=== PATIENT | male | born 1980 | race Caucasian/White ===

== ENCOUNTER → 2020-06-12 | Outpatient (CLI) | payer BC, SELFPAY | END | disposition home or self-care (01) | LOC: LABSPEC 15:39 | PROVIDERS: PCP Family Medicine; Referring Provider Physician Assistant; Visit Provider Physician Assistant | DX: Z20.828 Contact with and (suspected) exposure to other viral communicable diseases (principal) | CPT/HCPCS: 87635; U0003 ==

== ENCOUNTER → 2021-03-15 | Outpatient (CLI) | payer BC, SELFPAY | END | disposition home or self-care (01) | PROVIDERS: PCP Family Medicine; Referring Provider Physician Assistant Surgical; Visit Provider Physician Assistant Surgical | DX: Z20.822 Contact with and (suspected) exposure to COVID-19 (principal) | CPT/HCPCS: 87635; U0005; U0003 ==

== ENCOUNTER → 2021-06-29 09:16 | Outpatient (CLI) | payer BC, SELFPAY ==
[2021-06-29 12:19] LABS: Absolute Lymphocyte Count 1.36 X10^3/uL (0.83-4.51); Absolute Neutrophil Count 3.3 X10^3/uL (2.0-7.7); Basophil# 0.01 X10^3/uL; Basophil% 0.2 % (0-1); Eosinophil# 0.19 X10^3/uL; Eosinophils% 3.6 % (0-5); Hematocrit 42.1 % (40-54); Hemoglobin 14.5 g/dL (13.0-16.5); Lymphocyte # 1.36 X10^3/ul (0.83-4.51); Lymphocyte % 25.8 % (19-41); Mean Corp Hgb Conc 34.4 g/dL (32-36); Mean Corpuscular Hgb 29.7 pg (27.0-32.0); Mean Corpuscular Volume 86.3 fL (80-94); Mean Platelet Vol. 9.7 fl (6.2-12.0); Monocyte# 0.42 X10^3/uL; NRBC Flagged by Analyzer 0 % (0-5); Neutrophil # 3.29 X10^3/uL (2.7-7.7); Neutrophil % 62.2 % (47-70); Platelet Count 182 K/mm3 (150-450); RBC Distribution Width CV 12.5 % (11.6-14.6); RBC Distribution Width SD 39.4 fl (35.1-43.9); Red Blood Count 4.88 M/mm3 (4.6-6.2); White Blood Count 5.3 K/mm3 (4.4-11.0)
[2021-06-29 12:53] LABS: ALB/GLOB Ratio 1.2 RATIO (0.9-2.4); AST(SGOT) 29 U/L (15-37); Alanine Aminotransfer ALT/SGPT 77 U/L (16-61); Albumin, Serum 4.6 g/dL (3.2-5.0); Alkaline Phosphatase 52 U/L (45-117); Anion Gap 11 (5-15); BUN 13 mg/dL (7-18); BUN/Creat Ratio 17.4 RATIO (10-20); Calcium,Total 9.6 mg/dL (8.5-10.1); Chloride 99 mmol/L (98-107); Cholesterol 159 mg/dL (200); Creatinine, Serum 0.75 mg/dL (0.70-1.30); EST Glomerular Filtration Rate 123 mL/min (>60); Est Glom Filt Rate - Afr Amer 149 mL/min (>60); Globulin 3.8 g/dL (2.2-4.2); Glucose 256 mg/dL (74-106); High Density Lipoprotein 34 mg/dL; Potassium 3.9 mmol/L (3.5-5.1); Protein, Total 8.4 g/dL (6.4-8.2); Sodium Level 138 mmol/L (136-145); Triglycerides 747 mg/dL
[2021-06-29 12:57] LABS: Microalbumin:Creatinine Ratio 12.6 mg/g CRE (<30 mg/g CRE)
== END ==
PROVIDERS: PCP Internal Medicine; Referring Provider Internal Medicine; Visit Provider Internal Medicine
DX: E11.9 Type 2 diabetes mellitus without complications (principal)
CPT/HCPCS: 36415; 80053; 80061; 82043; 82570; 85025

== ENCOUNTER 2021-07-31 12:27 | Outpatient (CLI) | payer BC, SELFPAY ==
[2021-07-31] MEDS: 0.9% Saline Lock 10 ML Syringe IV (12:50)
[2021-07-31 13:05] VITALS: BP 124/84; PULSE 77; RESP 16; TEMP 36.6; O2SAT 98; BMI 35.4
[2021-07-31 13:20] VITALS: BP 116/76; PULSE 96; RESP 16; TEMP 37.1; O2SAT 99
[2021-07-31 14:09] VITALS: BP 123/80; PULSE 91; RESP 16; TEMP 36.9; O2SAT 100
== END 2021-07-31 23:59 | disposition home or self-care (01) ==
LOC: MS3OUT 12:27 → MS3 12:28
PROVIDERS: PCP Internal Medicine; Referring Provider Nurse Practitioner Adult Health; Visit Provider Nurse Practitioner Adult Health
DX: Z23 Encounter for immunization (principal); U07.1 COVID-19
CPT/HCPCS: J7050; M0245; Q0245; A4216

== ENCOUNTER 2021-09-14 16:33 | Outpatient (CLI) | payer BC, SELFPAY ==
--- NOTE | 2021-09-14 | CYST_PTH ---
PATIENT: JEN EATON LOC: [facility] U#:[id number] AGE/SX: 41/M ROOM: RE09/14/[address]: Dr. Derek Ragsdale MD : 1980 BED: DIS: 09/14/2021 SPEC #: [id number] RECD: 09/14/21 16:20 STATUS: ALIVIA BLAIR #: [id number] LULY: 09/14/21 00:[address]: Derek Ragsdale DEPT: SURGICAL PATHOLOGY RECD BY: Ge Lees ENTERED: 09/15/21 10:13 SP TYPE: Cyst OTHR DR: Dr. Kimani Mckeon MD Tissues: CYST Procedures: Surgery Specimen Level III HEADER OPERATION: Excision of back cyst PRE-OP DIAGNOSIS: Sebaceous cyst of back TISSUE SUBMITTED: Back cyst MICROSCOPIC DIAGNOSIS Back cyst, excision: Epidermal inclusion cyst. MARELY:wilmer 09/16/2021 MICROSCOPIC DESCRIPTION Slides are reviewed. GROSS DESCRIPTION Received in fixative is one container labeled with the patient's name and designated back cyst. The specimen consists of a piece of skin with underlying. The underlying tissue measures 3 x 2 x 1 cm and skin piece measures 1.5 x 0.5 cm. The specimen is bisected and reveals a cyst filled with comer-white, cheesy material measuring 1.5 cm in greatest dimension. Forensic Document Examiner sections are submitted in two cassettes. / SJ:rg 09/15/2021 :5 [facility]: [id number]
== END 2021-09-14 23:59 | disposition home or self-care (01) ==
LOC: LABSPEC 16:35
PROVIDERS: PCP Internal Medicine; Referring Provider Surgery; Visit Provider Surgery
DX: L72.0 Epidermal cyst (principal)
CPT/HCPCS: 88304

== ENCOUNTER → 2022-11-11 | Outpatient (CLI) | payer BC, SELFPAY ==
[2022-11-11 17:10] LABS: Absolute Neutrophil Count 4.3 X10^3/uL (2.0-7.7); Basophil# 0.01 X10^3/uL; Basophil% 0.2 % (0-1); Eosinophil# 0.13 X10^3/uL; Hematocrit 44.1 % (40-54); Hemoglobin 14.7 g/dL (13.0-16.5); Lymphocyte % 23.4 % (19-41); Mean Corp Hgb Conc 33.3 g/dL (32-36); Mean Corpuscular Hgb 29.7 pg (27.0-32.0); Mean Corpuscular Volume 89.1 fL (80-94); Mean Platelet Vol. 9.3 fl (6.2-12.0); Monocyte# 0.46 X10^3/uL; Monocyte% 7.2 % (0-10); NRBC Flagged by Analyzer 0 % (0-5); Neutrophil # 4.28 X10^3/uL (2.7-7.7); Neutrophil % 66.7 % (47-70); Platelet Count 228 K/mm3 (150-450); RBC Distribution Width CV 13.1 % (11.6-14.6); RBC Distribution Width SD 42.6 fl (35.1-43.9); Red Blood Count 4.95 M/mm3 (4.6-6.2); White Blood Count 6.4 K/mm3 (4.4-11.0)
[2022-11-11 17:33] LABS: Hemoglobin A1c 7.9 % (3.8-5.6)
[2022-11-11 17:35] LABS: Microalbumin,Random Urine 5.4 mg/L (NO RANGE EST.); Microalbumin:Creatinine Ratio 10.6 mg/g CRE (<30 mg/g CRE)
[2022-11-11 17:36] LABS: ALB/GLOB Ratio 1.6 RATIO (0.9-2.4); AST(SGOT) 35 U/L (15-37); Alanine Aminotransfer ALT/SGPT 74 U/L (16-61); Albumin, Serum 4.8 g/dL (3.2-5.0); Alkaline Phosphatase 41 U/L (45-117); Anion Gap 11 (5-15); BUN 17 mg/dL (7-18); BUN/Creat Ratio 17.1 RATIO (10-20); Calcium,Total 9.9 mg/dL (8.5-10.1); Chloride 103 mmol/L (98-107); Cholesterol 125 mg/dL (200); Creatinine, Serum 0.99 mg/dL (0.70-1.30); EST Glomerular Filtration Rate 88 mL/min (>60); Est Glom Filt Rate - Afr Amer 107 mL/min (>60); Glucose 171 mg/dL (74-106); High Density Lipoprotein 35 mg/dL; Potassium 3.6 mmol/L (3.5-5.1); Protein, Total 7.8 g/dL (6.4-8.2); Sodium Level 142 mmol/L (136-145); Triglycerides 378 mg/dL; Very Low Density Lipoprotein 76 mg/dL (5-40)
== END | disposition home or self-care (01) ==
LOC: BIMLAB 15:47
PROVIDERS: PCP Internal Medicine; Referring Provider Internal Medicine; Visit Provider Internal Medicine
DX: E11.9 Type 2 diabetes mellitus without complications (principal); E78.2 Mixed hyperlipidemia
CPT/HCPCS: 36415; 80053; 80061; 82043; 82570; 83036; 85025

== ENCOUNTER → 2024-08-02 | Outpatient (CLI) | payer BC, SELFPAY ==
[2024-08-02 12:05] LABS: Absolute Lymphocyte Count 1.44 X10^3/uL (0.83-4.51); Absolute Neutrophil Count 2.9 X10^3/uL (2.0-7.7); Basophil# 0.02 X10^3/uL; Basophil% 0.4 % (0-1); Eosinophil# 0.13 X10^3/uL; Eosinophils% 2.6 % (0-5); Hematocrit 44.8 % (40-54); Hemoglobin 15.2 g/dL (13.0-16.5); Lymphocyte # 1.44 X10^3/ul (0.83-4.51); Lymphocyte % 29.3 % (19-41); Mean Corp Hgb Conc 33.9 g/dL (32-36); Mean Corpuscular Hgb 30.1 pg (27.0-32.0); Mean Corpuscular Volume 88.7 fL (80-94); Mean Platelet Vol. 9.6 fl (6.2-12.0); Monocyte% 8.1 % (0-10); NRBC Flagged by Analyzer 0 % (0-5); Neutrophil # 2.92 X10^3/uL (2.7-7.7); Neutrophil % 59.4 % (47-70); Platelet Count 222 K/mm3 (150-450); RBC Distribution Width CV 13.2 % (11.6-14.6); RBC Distribution Width SD 42.8 fl (35.1-43.9); Red Blood Count 5.05 M/mm3 (4.6-6.2); White Blood Count 4.9 K/mm3 (4.4-11.0)
[2024-08-02 12:20] LABS: ALB/GLOB Ratio 1.4 RATIO (0.9-2.4); AST(SGOT) 46 U/L (15-37); Alanine Aminotransfer ALT/SGPT 101 U/L (16-61); Albumin, Serum 4.9 g/dL (3.2-5.0); Alkaline Phosphatase 43 U/L (45-117); Anion Gap 7 (5-15); BUN 17 mg/dL (7-18); BUN/Creat Ratio 17.1 RATIO (10-20); Calcium,Total 9.5 mg/dL (8.5-10.1); Chloride 103 mmol/L (98-107); Cholesterol 214 mg/dL (200); EST Glomerular Filtration Rate 88 mL/min (>60); Est Glom Filt Rate - Afr Amer 106 mL/min (>60); Globulin 3.4 g/dL (2.2-4.2); Glucose 161 mg/dL (74-106); High Density Lipoprotein 38 mg/dL; Potassium 3.8 mmol/L (3.5-5.1); Protein, Total 8.3 g/dL (6.4-8.2); Sodium Level 138 mmol/L (136-145); Triglycerides 222 mg/dL; Very Low Density Lipoprotein 44 mg/dL (5-40)
[2024-08-02 12:29] LABS: Vitamin B12 450 pg/mL (211-911)
[2024-08-02 12:36] LABS: Microalbumin,Random Urine 11.3 mg/L (NO RANGE EST.); Microalbumin:Creatinine Ratio 10.3 mg/g CRE (<30 mg/g CRE)
== END | disposition home or self-care (01) ==
LOC: BIMLAB 09:57
PROVIDERS: PCP Internal Medicine; Referring Provider Internal Medicine; Visit Provider Internal Medicine
DX: E11.9 Type 2 diabetes mellitus without complications (principal); I10 Essential (primary) hypertension; E78.2 Mixed hyperlipidemia
CPT/HCPCS: 36415; 80053; 80061; 82043; 82570; 82607; 85025

== ENCOUNTER → 2024-08-06 | Outpatient (CLI) | payer BC, SELFPAY ==
--- NOTE | 2024-08-06 07:12 | US_ITS ---
PROCEDURE: Limited abdominal ultrasound. REASON FOR EXAM: Elevated liver enzymes. PROCEDURE: The liver measures 20.1 cm with increased echogenicity. There is a paddle pedal flow. The gallbladder measures 9 cm in length. Negative sonographic Saucedo sign. No stones or sludge. Th e common bile duct measures 4 mm. The visualized pancreas is within normal limits. The right kidney measures 14.1 cm in length. Normal echogenicity. No hydronephrosis or visualized c alculi. US/Liver IMPRESSION: Hepatomegaly and hepatic steatosis. Reading Location: [id number]
== END | disposition home or self-care (01) ==
LOC: US 07:12
PROVIDERS: PCP Internal Medicine; Referring Provider Internal Medicine; Visit Provider Internal Medicine
DX: R74.8 Abnormal levels of other serum enzymes (principal)
CPT/HCPCS: 76705

== ENCOUNTER → 2025-04-11 | Outpatient (CLI) | payer BC, SELFPAY ==
--- NOTE | 2025-04-11 08:06 | EKG12_ITS ---
Test Reason : ROUTINE Blood Pressure : */* mmHG Vent. Rate : 96 BPM Atrial Rate : 96 BPM P-R Int : 154 ms QRS Dur : 80 ms QT Int : 326 ms P-R-T Axes : 59 32 30 degrees QTcB Int : 411 ms Normal sinus rhythm Normal ECG Confirmed by CAROLYN GRAY, JESUS MANUEL ([id number]), supervising editor trailer DELON IBARRA ([id number]) on 04/14/2025 6:19:50 AM Referred By: Kimani Mckeon Confirmed By: JESUS MANUEL LEON MD
== END | disposition home or self-care (01) ==
PROVIDERS: PCP Internal Medicine; Referring Provider Internal Medicine; Visit Provider Internal Medicine
DX: E78.2 Mixed hyperlipidemia (principal); E11.69 Type 2 diabetes mellitus with other specified complication; Z82.49 Family history of ischemic heart disease and other diseases of the circulatory system
CPT/HCPCS: 93005

== ENCOUNTER → 2025-04-25 | Outpatient (CLI) | payer BC, SELFPAY ==
--- OUTSIDE RECORDS SUMMARY | 2025-04-25 07:44 | XMS RPT_ITS | CCD ---
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 Kimani Mckeon Primary Care Provider 1([phone]) Dr. Kimani Mckeon Referring Provider [phone] RADHA Sparrow Attending Provider Dr. Kimani Mckeon Attending Provider [phone] Kimani Mckeon MD Primary Care Provider 1( 30) MARYANA HERNANDEZANN Yesenia Referring Unavailable OLEGHE, EFEWONGBE B Primary Care Unavailable KARRI HERNANDEZ Referring Unavailable OLEGHE, EFEWONGBE B Primary Care Unavailable HRKARRI KIDD Attending Unavailable OLEGHE, EFEWONGBE B Primary Care Unavailable HRMARYANA KIDDANN E Referring Unavailable OLEGHE, EFEWONGBE B Primary Care Unavailable JARRED GIRALDO Attending Unavailable Dr. Kimani Mckeon MD Primary Care Provider Dr. Kimani Mckeon MD Attending Provider 1(33 0) Dr. Kimani Mckeon MD Referring Provider 1(33 0) Kimani Mckeon Attending Unavailable Oleghe, Efewongbe Referring Unavailable Oleghe, Efewongbe Primary Care Unavailable Marvghe, Efewongbe Attending Unavailable Marvghe, Efewongbe Referring Unavailable Oleghe, Efewongbe Primary Care Unavailable Oleghe, Efewongbe Attending Unavailable Oleghe, Efewongbe Referring Unavailable Oleghe, Efewongbe Primary Care Unavailable Oleghe, Efewongbe Primary Care Unavailable Oleghe, Efewongbe Attending Unavailable Oleghe, Efewongbe Referring Unavailable Oleghe, Efewongbe Primary Care Unavailable Oleghe, Efewongbe Attending Unavailable Oleghe, Efewongbe Referring Unavailable Oleghe, Efewongbe Primary Care Unavailable Oleghe, Efewongbe Attending Unavailable Oleghe, Efewongbe Referring Unavailable Medications Current Medications Medication Drug Class(es) Dates Sig (Normalized) Sig (Original) Blood-Glucose Meter (FREESTYLE LITE METER) monitoring kit (8 sources) Start: 09-17-2012 Blood-Glucose Meter (FREESTYLE LITE METER) monitoring kit DX: 250.00 1 Each 0 09/17/2012 Active Comment on above: DX: 250.00 dulaglutide (TRULICITY) 3 mg/0.5 mL pen injector (8 sources) Start: 05-14-2021 inject 3 mg by subcutaneous injection every week dulaglutide (TRULICITY) 3 mg/0.5 mL pen injector Inject 3 mg subcutaneously one time a week. 12 Each 3 05/14/2021 Active Comment on above: Inject 3 mg subcutan eously one time a week. glimepiride 4 mg oral tablet (18 sources) Sulfonylurea Start: 06-29-2021 End: 01-13-2025 take 1 tablet by mouth twice daily Glimepiride 4 mg tablet Active 4 mg PO TWICE A DAY 180 3 January 13, 2025 11:38am Start: 05-14-2021 take 2 tablets by mo uth once daily at breakfast glimepiride (AMARYL) 4 mg tablet Take 2 tablets by mouth daily with breakfast. 180 tablet 1 05/14/2021 Active Start: 07-19-2019 End: 06-29-2021 take 1 tablet by mouth once daily Glimepiride (Amaryl) 1 mg tablet Discontinued 1 mg PO DAILY July 19, 2019 1:00am June 29, 2021 9:29am Comment on above: Take 2 tablets by mo uth daily with breakfast. 24 hr metFORMIN hydrochloride 500 mg extended release oral tablet (20 sources) Biguanide Start: take 2 tablets by mouth every twelve hours metFORMIN ER (GLUCOPHAGE XR) 500 mg 24 hr tablet Take 2 tablets by mouth every 12 hours. 08/10/2024 Active Start: 08-02-2024 End: 01-02-2025 Metformin 500 mg tablet exte nded release 24 hr Active 1000 mg PO TWICE A DAY 180 1 January 02, 2025 8:30am Start: 06-04-2024 End: 07-04-2024 Metformin 500 mg tablet exte nded release 24 hr Discontinued 1000 mg PO TWICE A DAY 120 30 0 June 04, 2024 1:27pm July 03, 2024 1:00am July 04, 2024 1:08am Start: 08-25-2023 End: 05-12-2024 Metformin 500 mg tablet exte nded release 24 hr Discontinued 1000 mg PO TWICE A DAY 360 90 0 February 12, 2024 1:13pm May 11, 2024 12:00am May 12, 2024 12:08am Start: 06-29-2021 End: 08-25-2023 take 1 tablet by mouth twice daily Metformin 1,000 mg tablet extended release 24 hr Discontinued 0 .ROUTE .COMPLEX 90 0 August 24, 2023 11:36am August 25, 2023 2:46pm TAKE 1 TABLET BY MOUTH TWICE A DAY Start: 05-14-2021 End: 06-29-2021 take 1 tablet by mouth twice daily Metformin 1,000 mg tablet Discontinued 1000 mg PO TWICE A DAY June 29, 2021 1:00am June 29, 2021 9:43am Start: 07-19-2019 End: 06-29-2021 take 500 mg by mouth once daily Metformin 500 mg/5 mL solution Discontinued 500 mg PO DAILY July 19, 2019 1:00am June 29, 2021 9:29am Comment on above: Take 1 tablet by yasmany th twice daily with meals. milk thistle extract 150 mg oral capsule (1 source) Start: 5 take 1 capsule by mouth once daily Milk Thistle 150 mg cap Take 1 capsule by mouth once daily. 90 capsule 3 02/27/2025 Active Multivitamin preparation (1 source) Start: 1 take 1 tablet by mouth once daily Multivitamin Active 1 TABLET PO DAILY June 29, 2021 1:00am Multivitamin tablet (1 source) Start: 1 Multivitamin tablet Active 1 {tbl} PO DAILY June 29, 2021 1:00am omega-3 acid ethyl esters (mcc) 1000 mg oral capsule (10 sources) Start: omega-3 acid ethyl esters (LOVAZA) 1 gram capsule Indications: Hyperlipidemia with target LDL less than 100 Take 2 capsules by mouth twice daily. 360 capsule 3 05/14/2021 Active Start: 07-19-2019 End: 06-29-2021 take 1 capsule by mouth once daily [place]-3 Acid Ethyl Esters (Lovaza) 1 gram capsule Discontinued 1 NMA PO DAILY July 19, 2019 1:00am June 29, 2021 9:31am Comment on above: Take 2 capsules by m out twice daily. [place]-3 Fatty Acids (3 sources) Start: 11-11-2022 take 1000 mg by mouth twice daily [place]-3 Fatty Acids Active 1000 MG PO TWICE A DAY 180 November 11, 2022 3:37pm Start: 09-15-2022 End: 11-11-2022 take 1000 mg by mouth twice daily [place]-3 Fatty Acids Discontinued 1000 MG PO TWICE A DAY 180 September 15, 2022 3:55pm November 11, 2022 3:37pm Start: 06-29-2021 End: 09-15-2022 take 1000 mg by mouth twice daily [place]-3 Fatty Acids Discontinued 1000 MG PO TWICE A DAY June 29, 2021 1:00am September 15, 2022 3:55pm [place]-3 Fatty Acids 1,000 mg capsule (6 sources) Start: 10-28-2024 take 1 capsule by mouth twice daily [place]-3 Fatty Acids 1,000 mg capsule Active 1000 mg PO TWICE A DAY 180 October 28, 2024 9:26am Start: 02-27-2024 End: 10-28-2024 take 1 capsule by mouth twice daily [place]-3 Fatty Acids 1,000 mg capsule Discontinued 1000 mg PO TWICE A DAY 180 February 27, 2024 11:47am October 28, 2024 9:26am Start: 08-28-2023 End: 02-27-2024 take 1 capsule by mouth twice daily [place]-3 Fatty Acids 1,000 mg capsule Discontinued 1000 mg PO TWICE A DAY 180 August 28, 2023 6:31pm February 27, 2024 11:47am Start: 11-11-2022 End: 08-28-2023 take 1 capsule by mouth twice daily [place]-3 Fatty Acids 1,000 mg capsule Discontinued 1000 mg PO TWICE A DAY 180 November 11, 2022 3:37pm August 28, 2023 6:31pm Start: 09-15-2022 End: 11-11-2022 take 1 capsule by mouth twice daily [place]-3 Fatty Acids 1,000 mg capsule Discontinued 1000 mg PO TWICE A DAY 180 September 15, 2022 3:55pm November 11, 2022 3:37pm Start: 06-29-2021 End: 09-15-2022 take 1 capsule by mouth twice daily [place]-3 Fatty Acids 1,000 mg capsule Discontinued 1000 mg PO TWICE A DAY June 29, 2021 1:00am September 15, 2022 3:55pm pravastatin sodium 10 mg oral tablet (1 source) HMG-CoA Reductase Inhibitor Start: 02-26-2025 take 1 tablet by mouth once daily pravastatin (PRAVACHOL) 10 mg tablet Take 1 tablet by mouth once daily. 90 tablet 3 02/26/2025 Active ramipril 5 mg oral capsule (19 sources) Angiotensin Converting Enzyme Inhibitor Start: 06-29-2021 End: 09-23-2022 take 1 tablet by mouth once daily Ramipril 5 mg tablet Discontinued 5 mg PO DAILY June 29, 2021 1:00am September 23, 2022 4:53pm Start: 05-14-2021 End: 01-02-2025 take 1 capsule by mouth once daily Ramipril 5 mg capsule Active 5 mg PO DAILY 60 0 January 02, 2025 8:31am Start: 07-19-2019 End: 06-29-2021 take 1 capsule by mouth once daily Ramipril 1.25 mg capsule Discontinued 1.25 mg PO DAILY July 19, 2019 1:00am June 29, 2021 9:30am Comment on above: Take 1 capsule by [facility] daily. rosuvastatin calcium 20 mg oral tablet (1 source) HMG-CoA Reductase Inhibitor Start: take 1 tablet by mouth once daily Rosuvastatin 20 mg tablet Active 20 mg PO daily 30 3 March 07, 2025 12:00am Tirzepatide 10 mg/0.5 mL pen injector (1 source) Start: 5 Tirzepatide 10 mg/0.5 mL pen injector Active 10 mg SC EVERY WEEK 2 March 07, 2025 11:14am Completed/Discontinued Medications Medication Drug Class(es) Dates Sig (Normalized) Sig (Original) amoxicillin 500 mg oral tablet (2 sources) Penicillin-class Antibacterial Start: 10-24-2021 End: 11-26-2021 take 1 tablet by mouth twice daily Amoxicillin 500 mg tablet Discontinued 500 mg PO TWICE A DAY October 24, 2021 12:00am November 26, 2021 10:26am Pharyngitis due to Streptococcus species Streptococcal pharyngitis amoxicillin 875 mg / clavulanate 125 mg oral tablet (2 sources) Penicillin-class Antibacterial Start: 04-15-2022 End: 04-25-2022 Amoxicillin-Pot Clavulanate 875-125 mg tablet Discontinued 1 {tbl} PO Q12H 20 April 15, 2022 12:00am April 24, 2022 12:00am April 25, 2022 12:03am Acute sinusitis, unspecified Start: 04-15-2022 End: 04-25-2022 take 1 tablet by mouth every twelve hours Amoxicillin-Pot Clavulanate Discontinued 1 TABLET PO Q12H 20 April 15, 2022 12:00am April 25, 2022 12:03am atorvastatin 20 mg oral tablet (14 sources) HMG-CoA Reductase Inhibitor Start: 11-14-2022 End: 08-16-2023 take 1 tablet by mouth at bedtime Atorvastatin 20 mg tablet Discontinued 20 mg PO AT BEDTIME 90 November 14, 2022 3:08pm August 16, 2023 3:44pm Start: 05-14-2021 End: 11-14-2022 take 1 tablet by mouth at bedtime Atorvastatin 40 mg tablet Discontinued 40 mg PO AT BEDTIME 90 December 03, 2021 8:16am November 11, 2022 3:37pm Start: 07-19-2019 End: 06-29-2021 take 1 tablet by mouth once daily Atorvastatin (Lipitor) 10 mg tablet Discontinued 10 mg PO DAILY July 19, 2019 1:00am June 29, 2021 9:30am Comment on above: Take 1 tablet by yasmany once daily. dapagliflozin 10 mg oral tablet (20 sources) Sodium-Glucose Cotransporter 2 Inhibitor Start: 06-29-20 End: 08-02-19 take 1 tablet by mouth once daily in the morning Dapagliflozin Propanediol (Farxiga) 10 mg tablet Discontinued 10 mg PO EVERY MORNING 90 August 02, 2024 10:38am August 02, 2024 10:44am Dulaglutide (13 sources) GLP-1 Receptor Agonist Start: 02-07-20 End: 08-02-19 Dulaglutide 4.5 mg/0.5 mL pen injector Discontinued 4.5 mg SC EVERY WEEK 6.5 90 February 07, 2024 5:58pm August 02, 2024 10:41am Start: 11-11-2022 End: 02-07-2024 Dulaglutide 4.5 mg/0.5 mL pe n injector Discontinued 4.5 mg SC EVERY WEEK 6.5 90 November 11, 2022 3:37pm February 07, 2024 6:09pm Start: 11-11-2022 Dulaglutide Ac tive 4.5 MG SC EVERY WEEK 6.5 November 11, 2022 3:37pm Start: 09-13-2022 End: 11-11-2022 Dulaglutide 4.5 mg/0.5 mL pe n injector Discontinued 4.5 mg SC EVERY WEEK 6.5 90 September 13, 2022 9:54am November 11, 2022 3:37pm Start: 09-13-2022 End: 11-11-2022 Dulaglutide Discontinued 4.5 MG SC EVERY WEEK 6.5 90 September 13, 2022 9:54am November 11, 2022 3:37pm Start: 08-06-2021 End: 09-13-2022 Dulaglutide 4.5 mg/0.5 mL pe n injector Discontinued 4.5 mg SC EVERY WEEK 6.5 90 August 06, 2021 10:29am September 13, 2022 9:54am Start: 08-06-2021 End: 09-13-2022 Dulaglutide Discontinued 4.5 MG SC EVERY WEEK 6.5 90 August 06, 2021 10:29am September 13, 2022 9:54am Start: 06-29-2021 End: 08-06-2021 Dulaglutide (Trulicity) 4.5 mg/0.5 mL pen injector Discontinued 4.5 mg SC EVERY WEEK 6.5 90 June 29, 2021 10:05am August 06, 2021 10:32am Start: 06-29-2021 End: 08-06-2021 Dulaglutide (Trulicity) 4.5 mg/0.5 mL pen injector Discontinued 4.5 MG SC EVERY WEEK 6.5 90 June 29, 2021 10:05am August 06, 2021 10:32am Start: 06-29-2021 End: 06-29-2021 Dulaglutide (Trulicity) 3 mg /0.5 mL pen injector Discontinued 3 mg SC EVERY WEEK June 29, 2021 1:00am June 29, 2021 10:07am Start: 06-29-2021 End: 06-29-2021 Dulaglutide (Trulicity) 3 mg /0.5 mL pen injector Discontinued 3 MG SC EVERY WEEK June 29, 2021 1:00am June 29, 2021 10:07am Start: 07-19-2019 End: 06-29-2021 Dulaglutide (Trulicity) 0.75 mg/0.5 mL pen injector Discontinued 0.75 mg SC EVERY WEEK July 19, 2019 1:00am June 29, 2021 9:31am ezetimibe 10 mg oral tablet (6 sources) Dietary Cholesterol Absorption Inhibitor Start: 08-02-2024 End: 03-07-2025 take 1 tablet by mouth once daily Ezetimibe (Zetia) 10 mg tablet Discontinued 10 mg PO daily 90 0 December 16, 2024 8:04am March 07, 2025 11:26am fenofibrate 54 mg oral tablet (13 sources) Peroxisome Proliferator Receptor alpha Agonist Start: 11-14-2022 End: 12-16-2024 take 1 tablet by mouth once daily Fenofibrate 54 mg tablet Discontinued 0 .ROUTE .COMPLEX 90 0 September 09, 2024 2:14pm December 16, 2024 8:05am TAKE 1 TABLET BY MOUTH EVERY DAY oseltamivir 75 mg oral capsule (1 source) Neuraminidase Inhibitor Start: 08-23-2024 End: 03-07-2025 take 1 capsule by mouth once daily Oseltamivir (Tamiflu) 75 mg capsule Discontinued 75 mg PO daily 7 0 August 23, 2024 1:00am March 07, 2025 10:48am Tirzepatide (Mounjaro) 7.5 mg/0.5 mL pen injector (3 sources) Start: 02-10-2025 End: 03-07-2025 Tirzepatide (Mounjaro) 7.5 mg/0.5 mL pen injector Discontinued 7.5 mg SC EVERY WEEK 2 0 February 10, 2025 4:55pm March 07, 2025 11:17am Start: 01-02-2025 End: 02-10-2025 Tirzepatide (Mounjaro) 7.5 m g/0.5 mL pen injector Discontinued 7.5 mg SC EVERY WEEK 2 0 January 02, 2025 8:48am February 10, 2025 4:55pm Start: 08-02-2024 End: 01-02-2025 Tirzepatide (Mounjaro) 7.5 m g/0.5 mL pen injector Discontinued 7.5 mg SC EVERY WEEK 2 0 August 02, 2024 1:00am January 02, 2025 8:48am Problems Active Problems Problem Classification Problem Date Documented Da te Episodic/Chronic Diabetes mellitus with complications (2 sources) Type 2 diabetes mellitus with other specified complication; Translations: [Type 2 diabetes mellitus with other specified complication] Onset: 03-07-2025 Chronic Diabetes mellitus without complication (9 sources) Type 2 diabetes mellitus; Translations: [Type 2 diabetes mellitus without complications] Onset: 07-06-2011 Resolved: 12-05-2014 08-06-2021 Chronic Disorders of lipid metabolism (20 sources) Hyperlipidemia; Translations: [Hyperlipidemia, unspecified] Onset: 07-06-2011 05-06-2015 Chronic Essential hypertension (5 sources) Hypertensive disorder; Translations: [Essential (primary) hypertension] Onset: 03-07-2025 08-06-2021 Chronic Mycoses (1 source) Dermal mycosis; Translations: [Superficial mycosis, unspecified] 02-07-2024 Episodic Other liver diseases (4 sources) Non-alcoholic fatty liver; Translations: [Fatty (change of) liver, not elsewhere classified] Onset: 05-18-2020 Chronic Other liver diseases (6 sources) Fatty (change of) liver, not elsewhere classified; Translations: [Other chronic nonalcoholic liver disease] Onset: 05-18-2020 05-18-2020 Chronic Other liver diseases (6 sources) Steatosis of liver; Translations: [Fatty (change of) liver, not elsewhere classified] Onset: 05-18-2020 12-20-2024 Chronic Other liver diseases (1 source) Elevated liver enzymes level; Translations: [Abnormal levels of other serum enzymes] 08-02-2024 Episodic Other liver diseases (1 source) Abnormal levels of other serum enzymes; Translations: [Abnormal levels of other serum enzymes] Onset: 03-07-2025 Episodic Other nervous system disorders (2 sources) Loss of sense of smell; Translations: [Anosmia] 07-27-2021 Episodic Other nutritional; endocrine; and metabolic disorders (1 source) Raised low density lipoprotein cholesterol 02-27-2025 Chronic Other nutritional; endocrine; and metabolic disorders (2 sources) Overweight in adulthood with body mass index of 25 or more but less than 30; Translations: [Body mass index (BMI) 28.0-28.9, adult] 07-27-2021 Episodic Other screening for suspected conditions (not mental disorders or infectious disease) (9 sources) Other specified abnormal findings of blood chemistry; Translations: [Other abnormal blood chemistry] Onset: 06-11-2015 06-11-2015 Episodic Other skin disorders (2 sources) Epidermoid cyst; Translations: [Epidermal cyst] 09-20-2021 Episodic Other skin disorders (2 sources) Sebaceous cyst of skin; Translations: [Sebaceous cyst] 09-02-2021 Episodic Other skin disorders (2 sources) Mass of skin; Translations: [Localized swelling, mass and lump, unspecified] 06-29-2021 Episodic Other upper respiratory infections (7 sources) Acute upper respiratory infection; Translations: [Acute upper respiratory infection, unspecified] 07-19-2019 Episodic Comment on above: Rx amoxicillin, dre ent education, one day off workPOC Rapid Strep A is positive Residual codes; unclassified (8 sources) Obstructive sleep apnea syndrome; Translations: [Obstructive sleep apnea (adult) (pediatric)] Onset: 11-24-2016 11-24-2016 Chronic Residual codes; unclassified (3 sources) Family history of cardiac disorder; Translations: [Family history of ischemic heart disease and other diseases of the circulatory system] Onset: 02-27-2025 02-27-2025 Episodic Residual codes; unclassified (1 source) FH: premature coronary heart disease; Translations: [Family history of ischemic heart disease and other diseases of the circulatory system] 03-07-2025 Episodic Residual codes; unclassified (2 sources) Family history of ischemic heart disease and other diseases of the circulatory system; Translations: [Family history of ischemic heart disease and other diseases of the circulatory system] Onset: 03-07-2025 Episodic Unclassified (8 sources) Type 2 diabetes mellitus without complication; Translations: [Diabetes mellitus type 2, uncontrolled, without complications] Onset: 12-30-2013 06-11-2015 Viral infection (2 sources) Disease caused by 2019-nCoV; Translations: [COVID-19] 07-27-2021 Episodic Past or Other Problems Problem Classification Problem Date Documented Da te Episodic/Chronic Contraceptive and procreative management (8 sources) Patient encounter status; Translations: [Encounter for sterilization] Onset: 05-17-2013 07-27-2015 Episodic Immunizations and screening for infectious disease (4 sources) Contact with and (suspected) exposure to other viral communicable diseases; Translations: [Contact with or suspected exposure to other viral communicable disease] Onset: 08-02-2024 06-12-2020 Episodic Results Test Name Value Interpretation Reference Range Facility 12 Lead EKGon 04-11-2025 12 Lead EKG [facility] Cardiovascular Services [address] [place] [address] 12 Lead EKG 04/11/25 0824 MR#: [id number] Acct: [id number] Name: JEN MORALES Rep #: [id number] : 1980 44 From: Ariella Baez MD Attending Dr: Dr. Kimani Mckeon MD Status: REG CLI Ordering Dr: Kimani Mckeon MD Date: 04/11/25 Location: [facility] Sex: M C Admitted: Test Reason : ROUTINE Blood Pressure : */* mmHG Vent. Rate : 96 BPM Atrial Rate : 96 BPM P-R Int : 154 ms QRS Dur : 80 ms QT Int : 326 ms P-R-T Axes : 59 32 30 degrees QTcB Int : 411 ms Normal sinus rhythm Normal ECG Confirmed by CAROLYN GRAY, JESUS MANUEL ([id number]), book editor DELON IBARRA ([id number]) on 04/14/2025 6:19:50 AM Referred By: Kimani Mckeon Confirmed By: JESUS MANUEL BAEZ MD 04/14/25 0619 Date Ariella Baez MD CC: Dr. Kimani Mckeon MD Signed Normal [facility] Internal Medicine Office Vis itosepideh 03-07-2025 Internal Medicine Office Visit [facility] [address] [place] [address] [place] [address] OFFICE VISIT Date of Service: 03/07/25 MR#: [id number] Acct: [id number] Name: JEN MORALES Rep #: [id number] : 1980 Provider: Dr. 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 Accompanied by: Self Is patient in pain?: No Allergies No Known Allergies Allergy (Verified 03/07/25 10:44) Medications ???Medication ???Instructions ???Recorded ???Confirmed ???Type multivitamin 1 tab PO DAILY 06/29/21 03/07/25 H istory blood sugar diagnostic (FreeStyle #100 ea 02/07/24 03/07/25 Rx Test strips) dapagliflozin propanediol 10 mg See Rx Instructions .Route 5 03/07/25 Rx tablet (Farxiga) .COMPLEX #90 tabs omega-3 fatty acids 1,000 mg 1,000 mg PO BID #180 caps 10/28/24 03/07/25 Rx capsule fenofibrate 54 mg tablet See Rx Instructions .Route 5 03/07/25 Rx .COMPLEX #90 tabs metformin 500 mg tablet,extended 1,000 mg (2 x 500 mg) PO BID #180 01/02/25 03/07/25 Rx release 24 hr tabs ramipril 5 mg capsule 5 mg PO DAILY #60 caps 01/02/25 Rx glimepiride 4 mg tablet 4 mg PO BID #180 tabs 01/13/25 Rx rosuvastatin 20 mg tablet 20 mg PO QDAY #30 tabs 03/07/25 Rx tirzepatide 10 mg/0.5 mL 10 mg (0.5 mL) subcut QWEEK #2 mL 03/07/25 03/07/25 Rx subcutaneous pen injector [facility] Medical History Hepatic steatosis Elevated liver enzymes Flu vaccine need Fungal dermatitis Epidermal inclusion cyst Hyperlipidemia Hypertension Localized skin mass, lump, or swelling Type 2 diabetes mellitus Hyperlipemia Diabetes Surgical History History of vasectomy Family History Father Myocardial infarction, Onset Age: 55 Uncle Myocardial infarction, Onset Age: 60 Grandfather Myocardial infarction, Onset Age: 60 Other CVA (cerebral vascular accident) Diabetes High cholesterol Social History Smoking Status: Never smoker alcohol intake: never substance use type: does not use what type of physical activity do you participate in: walking HPI HPI Chief Complaint: FU Details: JEN MORALES, is a 44 M who presents to the office today for follow-up of his chronic conditions. Also has some concerns. History of fatty liver disease, since his last visit established with gastroenterology at the [facility] at an elastography which ruled out any significant fibrosis or cirrhosis. Recommendation was for statin for optimal cholesterol management. Had been on atorvastatin in the past discontinued due to low HDL. Does not remember any other significant concerns. Currently on Zetia and fenofibrate and his triglycerides have significantly improved since going on fenofibrate. T For his Type 2 Diabetes Mellitus, the patient initially had been on Trulicity but switched to Mounjaro. He reports that the Mounjaro causes gastroesophageal symptoms similar to those experienced on Trulicity, including reflux, which he attempts to manage with omeprazole. His current HbA1c is at 8%, up from 7.9 at his last visit. He is also on glimepiride and metformin and Farxiga which he reports compliance with. There are familial concerns regarding coronary artery disease. His father had a fatal heart attack at 55, and he has other paternal family members with similar histories. Had a stress test years ago without any significant concerns per patient. Has significant risk factors including poorly controlled diabetes, hypertension and hyperlipidemia. Attestation: Documentation on this patient encounter was supported using ambient scribe technology/ voice AI technology. The patient consented to recording for the purpose of documenting the encounter. Provider reviewed content of the generated note prior to signature. ROS Const Constitutional: No body ache, excessive sweating, fatigue, fever(s), frequent falls, headache(s), snoring, weakness, weight change, sleep problems or change in appetite Eyes Eyes: No blurry vision, change in vision, vision loss, dry eyes, eye pain or Light sensitivity ENT ENT: No abnormal hearing, ear or mastoid pain, tinnitus, nasal congestion, headache(s), neck cody (more content not included)... Normal [facility] Liver ultrasound attenuation by transient elastographyon 12-20-2024 Fibroscan Report Date performed: December 20, 2024 Indication : MASLD Patient fasted 3 hours:Yes Performed by Malena Cortes LPN Impression The liver stiffness is 8.6 kPa which corresponds to 91% chance of stage 0-2 fibrosis. The CAP analysis showed grade S3 of liver steatosis. Stage of liver fibrosis based on above kPa: A 91% chance of stage 0-2 fibrosis A 9% chance of stage 3-4 fibrosis (advanced fibrosis) A 1.3% chance of stage 4 fibrosis (cirrhosis). A kPa >20 indicates a high likelihood of stage 4 fibrosis/cirrhosis, consider further testing to confirm and refer to hepatology. Recommendations If kPa <8.0, reassess periodically Fib-4 score every 1-2 years if T2DM/Pre-T2DM OR with 2 or more metabolic risk factors Fib-4 score 2-3 years if no T2DM and <2 metabolic risk factors If kPa >8.0, refer to hepatology for further evaluation Result-Findings Technical difficulties: None. Result: The reading was adequate. Please refer to get images report for individual readings Number of readings: 10 IQR %: 5 E (kpa): 8.6 CAP: 342 Interpreted by: Vee Lopez APRN, CNP MASLD Fibroscan Fibrosis Risk <7 kPA = F0-F2 97%, F3+F4 3%, F4 <1% <10 kPA = F0-F2 91%, F3+F4 9%, F4 1.3% 10-15 kPA = F0-F2 56%, F3+F4 43%, F4 14% >15 kPA = F0-F2 26%, F3+F4 74%, F4 46% Grade CAP value up to 237 dB/M corresponds to S0 (< 10 % Fat) CAP value between (238 - 258 dB/M) corresponds to S1 (>/= 11 % Fat) CAP value between (259 - 289 dB/M) corresponds to S2 (>/= 33 % Fat) CAP value > 290dB/M corresponds to S3 (>/= 67 % Fat) stage 0 ( S0:< 10 % steatosis) stage 1 (>/= S1: 11%-33% steatosis) stage 2 (>/= S2: 34%-66% steatosis) stage 3 (>/= S3: > 66% steatosis) References Sunday Y, Aj Q, Brand T, Rochelle J, Sunday H, Jose T. Controlled attenuation parameter for assessment of hepatic steatosis grades: a diagnostic meta-analysis. Int J Clin Exp Med. 2015 Apr 15;8(10):24805-86. PMID: 50859042; PMCID: [id number]. Jacqueline Mike, Checo HAROON, Vipin M, Bess F, Gamaliel J, Genia O, Chavo F, Sherry M, Adolfo G, Sal A, Javier E, Catrachito L, Zachery G, Kelsie A, Abdiel U, Oneida S, Emily P, Rko V, de Teresa V, Vipul M, Donita HAMMOND. Refining the Baveno elastography criteria for the definition of compensated advanced chronic liver disease. J Hepatol. 2020;74(5):6075-9302. doi: 10.1016/j.jhep.2020.11 .050. Epub 2019Jun 17. PMID: [id number]. Sue Mike, Remi Jerry, Marlena Mike, Tracey Mike, Gretta S, Madison Cole, Vikki Cole, Marcio Guzman. AASLD practice guidance on the clinical assessment and management of nonalcoholic fatty liver disease. Hepatology. 2022;77(5):4925-1547. doi:10.1097/HEP.540950 [id number] [facility] Radiology Study observation (narrative) [facility] A1AT SerPl-mCncon 12-05-2024 Alpha 1 antitrypsin [Mass/Vol] 115 mg/dL Normal 90-[address] [facility] Comment on above: Order Comment: Specgm arboleda Type: BLOOD SPECIMEN Ordering Facility: [facility] Address: [address] [place] [address] Performed By: #### 2 4325-3 #### [facility] CLIA [id number] [address] [place] [address] [place] Ceruloplasmin SerPl-mCncon 0 12-05-2024 Ceruloplasmin [Mass/Vol] 19 mg/dL Normal 15-[address] [facility] Comment on above: Order Comment: Rafia arboleda Type: BLOOD SPECIMEN Ordering Facility: [facility] Address: [address] [place] [address] Performed By: #### 2 4325-3 #### [facility] CLIA [id number] [address] [place] [address] [place] Ferritin SerPl-mCncon 2024 Ferritin [Mass/Vol] 272.0 ng/mL Normal 30.3-565.7 [facility] Comment on above: Order Comment: Rafia arboleda Type: BLOOD SPECIMEN Ordering Facility: [facility] Address: [address] [place] [address] Performed By: #### 5 0190-8, 1825-9, 2276-4, 2064-4 #### [facility] CLIA [id number] [address] [place] [address] [place] HBV core Ab Ser Qlon 025 HBV core Ab Ql (S) Negative Normal Negative [facility] Comment on above: Order Comment: Speci men Type: BLOOD SPECIMEN Ordering Facility: [facility] Address: [address] [place] [address] Result Comment: No e vidence of current or past infection with Hepatitis B virus. Should recent infection be suspected, repeat testing may be considered 3-4 weeks after this draw. Performed By: #### 5 195-3, 37049-8, 95750-6 #### [facility] CLIA [id number] [address] [place] [address] [place] HBV surface Ab Ql (S)on 11-08 HBV surface Ab Qn (S) 16.98 mIU/mL Normal [facility] Comment on above: Order Comment: Speci men Type: BLOOD SPECIMEN Ordering Facility: [facility] Address: [address] [place] [address] Result Comment: <8 m IU/mL: No serological evidence of immunity to Hepatitis B Virus. >/= 8 to <12 mIU/mL: No serological evidence of immunity to Hepatitis B Virus. >/= 12 mIU/mL: Consistent with serological evidence of immunity to Hepatitis B Virus. Performed By: #### 5 195-3, 33110-1, 88915-8 #### [facility] CLIA [id number] [address] [place] [address] [place] HBV surface Ab Ser Qlon 11-08 HBV surface Ab Ql (S) Positive Normal [facility] Comment on above: Order Comment: Speci men Type: BLOOD SPECIMEN Ordering Facility: [facility] Address: [address] [place] [address] Result Comment: Cons istent with serological evidence of immunity to Hepatitis B Virus. Performed By: #### 5 195-3, 82759-2, 73811-0 #### [facility] CLIA [id number] [address] [place], [place] [id number] [place] HBV surface Ag Ser Qlon 11-08 HBV surface Ag Ql (S) Negative Normal Negative [facility] Comment on above: Order Comment: Speci men Type: BLOOD SPECIMEN Ordering Facility: [facility] Address: [address] [place] [address] Performed By: #### 5 195-3, 00982-5, 75375-3 #### [facility] CLIA [id number] [address] [place] [address] [place] HCV Ab Ser Qlon 12-05-2024 HCV Ab Ql (S) Negative Normal Negative [facility] Comment on above: Order Comment: Speci men Type: BLOOD SPECIMEN Ordering Facility: [facility] Address: [address] [place] [address] Result Comment: The result suggests no evidence of infection with Hepatitis C virus. Should recent infection be suspected, repeat testing may be considered 4-6 weeks after this draw. Performed By: #### 1 6128-1 #### [facility] CLIA [id number] [address] [place] [address] [place] Hepatic function 2000 panelo n 12-05-2024 Albumin [Mass/Vol] 4.9 g/dL Normal 3.9-4.9 [facility] Comment on above: Order Comment: Speci men Type: BLOOD SPECIMEN Ordering Facility: [facility] Address: [address] [place] [address] Performed By: #### 2 4325-3 #### [facility] CLIA [id number] [address] [place] [address] [place] ALP [Catalytic activity/Vol] 40 U/L Normal 38-[address] [facility] Comment on above: Order Comment: Speci men Type: BLOOD SPECIMEN Ordering Facility: [facility] Address: [address] [place] [address] Performed By: #### 2 4325-3 #### [facility] CLIA [id number] [address] [place] [address] [place] ALT [Catalytic activity/Vol] 88 U/L High 10-[address] [facility] Comment on above: Order Comment: Speci men Type: BLOOD SPECIMEN Ordering Facility: [facility] Address: [address] [place] [address] Performed By: #### 2 4325-3 #### [facility] CLIA [id number] [address] [place] [address] [place] AST [Catalytic activity/Vol] 59 U/L High 14-[address] [facility] Comment on above: Order Comment: Speci men Type: BLOOD SPECIMEN Ordering Facility: [facility] Address: [address] [place] [address] Performed By: #### 2 4325-3 #### [facility] CLIA [id number] [address] [place] [address] [place] Bilirubin [Mass/Vol] 0.8 mg/dL Normal 0.2-1.3 [facility] Comment on above: Order Comment: Speci men Type: BLOOD SPECIMEN Ordering Facility: [facility] Address: [address] [place] [address] Performed By: #### 2 4325-3 #### [facility] CLIA [id number] [address] [place] [address] [place] Bilirubin.conjugated [Mass/Vol] 0.2 mg/dL Normal <0.[address] [facility] Comment on above: Order Comment: Speci men Type: BLOOD SPECIMEN Ordering Facility: [facility] Address: [address] [place] [address] Result Comment: Resu lts may be falsely decreased due to interference from hemolysis. Suggest reorder as clinically indicated. Performed By: #### 2 4325-3 #### [facility] CLIA [id number] [address] [place] [address] [place] Protein [Mass/Vol] 7.5 g/dL Normal 6.3-8.0 [facility] Comment on above: Order Comment: Speci men Type: BLOOD SPECIMEN Ordering Facility: [facility] Address: [address] [place] [address] Performed By: #### 2 4325-3 #### [facility] CLIA [id number] [address] [place] [address] [place] Iron and Iron binding capaci ty panelon 12-05-2024 Iron [Mass/Vol] 130 ug/dL Normal 41-[address] [facility] Comment on above: Order Comment: Speci men Type: BLOOD SPECIMEN Ordering Facility: [facility] Address: [address] [place] [address] Performed By: #### 5 0190-8, 1824-9, 4, 2063-10 #### [facility] CLIA [id number] [address] [place] [address] [place] Iron binding capacity [Mass/Vol] 359 ug/dL Normal 232-[address] [facility] Comment on above: Order Comment: Speci men Type: BLOOD SPECIMEN Ordering Facility: [facility] Address: [address] [place] [address] Performed By: #### 5 0190-8, 1824-9, 2275-10, 2063-10 #### [facility] CLIA [id number] [address] [place] [address] [place] Iron/TIBC [Molar ratio] 36.2 % Normal 15.0-57.[address] [facility] Comment on above: Order Comment: Speci men Type: BLOOD SPECIMEN Ordering Facility: [facility] Address: [address] [place] [address] Performed By: #### 5 0190-8, 182-9, 2275-10, 2063-10 #### [facility] CLIA [id number] [address] [place] [address] [place] Mitochondria Ab IF Ql (S)on 12-05-2024 Mitochondria M2 Ab IA Qn (S) 3.7 Units Normal <=20.[address] [facility] Comment on above: Order Comment: Rafia arboleda Type: BLOOD SPECIMEN Ordering Facility: [facility] Address: [address] [place] [address] Performed By: #### 1 4252-1, 87784-0 #### [facility] CLIA [id number] [address] [place] [address] [place] Mitochondria M2 Ab Ql (S) Negative Normal Negative [facility] Comment on above: Order Comment: Rafia arboleda Type: BLOOD SPECIMEN Ordering Facility: [facility] Address: [address] [place] [address] Result Comment: Anti -mitochondrial antibody test is used as an aid in diagnosis of primary biliary cholangitis. Clinical correlation is required. Performed By: #### 1 4252-1, 23719-1 #### [facility] CLIA [id number] [address] [place] [address] [place] Nuclear Ab IA Ql (S)on 12-05 KAREEN SCR QUAL Negative Normal Negative [facility] Comment on above: Order Comment: Rafia arboleda Type: BLOOD SPECIMEN Ordering Facility: [facility] Address: [address] [place] [address] Result Comment: The qualitative antinuclear antibody screen test performed using the following antigens: dsDNA, Chromatin, Ribosomal P, SS-A 60, SS-A 52, SS-B, Sm, SmRNP, COKEMAN A, COKEMAN 68, Scl-70, Majo-1, and Centromere B. Methodology: Multiplex flow immunoassay. Performed By: #### 2 4325-3 #### [facility] CLIA [id number] [address] [place] [address] [place] Smooth muscle Ab Ql (S)on ACTIN SMOOTH MUSCLE IGG QUALITATIVE Negative Normal Negative [facility] Comment on above: Order Comment: Rafia arboleda Type: BLOOD SPECIMEN Ordering Facility: [facility] Address: [address] [place] [address] Performed By: #### 1 4252-1, 05451-7 #### [facility] CLIA [id number] [address] [place] [address] [place] ACTIN SMOOTH MUSCLE IGG QUANTITATIVE 5 Units Normal <[address] [facility] Comment on above: Order Comment: Speci men Type: BLOOD SPECIMEN Ordering Facility: [facility] Address: [address] [place] [address] [place] [address] Performed By: #### 1 4252-1, 89646-6 #### [facility] CLIA [id number] [address] [place] [address] [place] CNOVon 11-28-2024 CNOV Office Visit ([facility] ) JEN MORALES ([id number]) 1980 Date Time Provider Department 11/28/24 8:00 AM KARRI HERNANDEZ [facility] During your visit today, we recorded the following information about you: Pulse Blood pressure Weight Height 91/minute 124/72 89.6 kg 1.765 m Karri Hernandez, PATROL CAPTAIN.[facility] 11/28/2024 8:27 AM Signed CHIEF COMPLAINT: Patient presents with: Fatty Liver This consult was requested by No ref. provider found for an opinion regarding fatty liver. My final recommendations will be communicated to the requesting health care provider by way of the shared medical record for internal providers or letter via the [employer] for external providers. HPI: Jen Morales is a 44 year old male with hx of DMII, HLD, AFUA who presents for Fatty Liver. He has routine blood work in July and it showed mild elevation of the LFT"s (AST 46, ALT 101, TB 1.1, ALP 43). Denies any family hx of liver issues. He has had some mild RUQ discomfort for about 2-3 years, and this improved some since starting zetia. (-) jaundice, easy bruising or bleeding, LE swelling, weight changes, melena or hematochezia. Alcohol: 1 drink per month, if that He was started on terbinafine by dermatology last summer (no longer on this). Record Review: [facility] / Outside records reviewed. PAST MEDICAL HISTORY Diagnosis Date Diabetes mellitus 2006 Type 2 Hyperlipidemia LDL goal < 100 2006 Obstructive sleep apnea 11/24/2016 PAST SURGICAL HISTORY Procedure Laterality Date DRG LYMPH NODE ABSC/LYMPHADENITIS EXTNSV 2006 VASECTOMY UNI/BI SPX W/POSTOP SEMEN EXAMS 07/05/13 Allergies: ALLERGIES No Known Allergies Medications: ZETIA 10 mg tablet Fenofibrate (LOFIBRA) 54 mg tablet FARXIGA 10 mg tablet metFORMIN ER (GLUCOPHAGE XR) 500 mg 24 hr tablet Take 2 tablets by mouth every 12 hours. glimepiride (AMARYL) 4 mg tablet Take 2 tablets by mouth daily with breakfast. ramipril (ALTACE) 5 mg capsule Take 1 capsule by mouth once daily. omega-3 acid ethyl esters (LOVAZA) 1 gram capsule Take 2 capsules by mouth twice daily. dulaglutide (TRULICITY) 3 mg/0.5 mL pen injector Inject 3 mg subcutaneously one time a week. blood sugar diagnostic (FREESTYLE LITE STRIPS) test strip TEST BLOOD SUGAR(S) TWICE TIMES DAILY. DX: E11.65 Blood-Glucose Meter (FREESTYLE LITE METER) monitoring kit DX: 250.00 FAMILY HISTORY Problem Relation Age of Onset other (hyperlipidemia [Other]) Mother Coronary Artery Disease Father None Brother Diabetes Maternal Grandmother Diabetes Paternal Grandmother Coronary Artery Disease Paternal Grandfather Colon Cancer No Family History Liver Disease No Family History Employer And Job Title: None on file Years Of Education Completed: Not specified Marital Status: Social History Tobacco Use Smoking status: Never Smokeless tobacco: Never Vaping Use Vaping status: Never Used Substance Use Topics Alcohol use: Yes Comment: once a month Drug use: No Review of Systems: Review of Systems All other systems reviewed and are negative. Are you taking any blood thinners? No Physical Examination: BP 124/72 Pulse 91 Ht 5' 9.5" (1.77m) Wt 197 lb 8 oz (89.6kg) BMI 28.76 kg/(m2). Physical Exam Constitutional: Appearance: Normal appearance. HENT: Head: Normocephalic and atraumatic. Eyes: General: No scleral icterus. Cardiovascular: Rate and Rhythm: Normal rate and regular rhythm. Pulmonary: Breath sounds: Normal breath sounds. Abdominal: General: Abdomen is protuberant. Bowel sounds are normal. There is no distension. Palpations: Abdomen is soft. Tenderness: There is no abdominal tenderness. There is no guarding or rebound. Skin: General: Skin is warm and dry. Neurological: Mental Status: He is alert and oriented to person, place, and time. Psychiatric: Mood and Affect: Mood normal. Behavior: Behavior normal. ASSESSMENT: (K76.0) Hepatic steatosis (primary encounter diagnosis) (R94.5) Abnormal liver function 1. Hepatic steatosis (Primary) - discussed MASLD, risk factors, treatment options (diet, exercise, weight loss, medication if F2/3), and risk of progression to cirrhosis. MMC is option if F2/3 - check Fibroscan - DDI VIBRATION CONTROLLED TRANSIENT ELASTOGRAPHY (VCTE) - HEPATIC FUNCTION PNL; Future 2. Abnormal liver function - likely d/t fatty liver, however will rule out other liver disease. Recheck HFP - KKLWB-5-WONIPSXESDS; Future - SMOOTH MUSCLE AB SCR; Future - KAREEN BLOOD; Future - CERULOPLASMIN; Future - FERRITIN; Future - HEP REMOTE PANEL BL; Future - IRON AND TIBC; Future - MITOCHONDRIAL M2 IGG SERUM; Future - HEPATIC FUNCTION PNL; Future Follow up in office TBD based on results Karri Hernandez APRN.CNP November 28, 2024 8:25 AM Karri Hernandez APRN.CNP 11/28/2024 8:20 AM Signed What is fa (more content not included)... Normal [facility] 09-11-2024 CHRIS Telephone ([facility]) JEN MORALES ([id number]) 1980 M Date Time Provider Department 09/11/24 KARRI HERNANDEZ During your visit today, we recorded the following information about you: Jeanna Xie 09/11/2024 12:10 PM Signed Patient called in and would like to provide Karri with a fax number to [place] in [place] if she would need to request any records prior to appointment.. Fax number is [phone]. Please advise. Thank you Luana Sagastume MA 09/11/2024 2:06 PM Signed FYI: Returned patient call, left voicemail, advised patient that he needs to contact his previous horticulturalist to have records forwarded, as he will have to sign a release of records to our service, fax number to here provided. Luana Sagastume [facility] [place] [facility] Allergies As of Date: 09/11/2024 (No Known Allergies) Date Reviewed: 05/18/2020 Reviewed by: Paulina Freire ([facility])CORINA - Fully Assessed Reason for Visit: Appointment [186] Prescriptions as of 10/16/2024 - glimepiride (AMARYL) 4 mg tablet Take 2 tablets by mouth daily with breakfast. - atorvastatin (LIPITOR) 40 mg tablet Take 1 tablet by mouth once daily. - ramipril (ALTACE) 5 mg capsule Take 1 capsule by mouth once daily. - metFORMIN (GLUCOPHAGE) 1,000 mg tablet Take 1 tablet by mouth twice daily with meals. - omega-3 acid ethyl esters (LOVAZA) 1 gram capsule Take 2 capsules by mouth twice daily. - dulaglutide (TRULICITY) 3 mg/0.5 mL pen injector Inject 3 mg subcutaneously one time a week. - blood sugar diagnostic (FREESTYLE LITE STRIPS) test strip TEST BLOOD SUGAR(S) TWICE TIMES DAILY. DX: E11.65 - Blood-Glucose Meter (FREESTYLE LITE METER) monitoring kit DX: 250.00 Problem List As Of Date 09/11/2024 Noted Resolved Diabetes mellitus (HCC) [E11.9] 07/06/2011 12/05/2014 Hyperlipidemia with target LDL less than 100 [E*07/06/2011 Encounter for sterilization [Z30.2] 05/17/2013 Diabetes mellitus type 2, uncontrolled, without*12/30/2013 Elevated liver function tests [R79.89] 06/11/2015 Obstructive sleep apnea [G47.33] 11/24/2016 Fatty liver disease, nonalcoholic [K76.0] 05/18/2020 Encounter Status:Closed by JEANNA XIE on 10/16/[address] [facility] Liveron 08-06-2024 Liver [facility] Imaging Services [address] [place], [place] [address] Liver MR#: [id number] Acct: [id number] Name: JEN MORALES Rep #: [id number] : 1980 M 44 From: Jen Dunn MD PCP: Dr. Kimani Mckeon MD Status: REG CLI Study: Liver Date of Exam: 08/06/24 Exam# [id number] Ordering Dr: Kimani Mckeon MD PROCEDURE: Limited abdominal ultrasound. REASON FOR EXAM: Elevated liver enzymes. PROCEDURE: The liver measures 20.1 cm with increased echogenicity. There is a paddle pedal flow. The gallbladder measures 9 cm in length. Negative sonographic Saucedo sign. No stones or sludge. The common bile duct measures 4 mm. The visualized pancreas is within normal limits. The right kidney measures 14.1 cm in length. Normal echogenicity. No hydronephrosis or visualized calculi. US/Liver IMPRESSION: Hepatomegaly and hepatic steatosis. Reading Location: [facility] CC: Dr. Kimani Mckeon MD Labor Representative: Signed Normal [facility] CBC W/Diff, Automatedon 07-11 Absolute Lymph 1.44 X10 3/uL Normal 0.83-4.51 [facility] Comment on above: Performed By: #### L 100.0100, L500.4100, L500.4050, L502.0250, L503.0105 #### [facility] Laboratory [address] [place], [place], [id number] Absolute Neut 2.9 X10 3/uL Normal 2.0-7.7 [facility] Comment on above: Performed By: #### L 100.0100, L500.4100, L500.4050, L502.0250, L503.0105 #### [facility] [address] [place], [address] Basophils/100 WBC (Bld) 0.4 % Normal 0-1 [facility] Comment on above: Performed By: #### L 100.0100, L500.4100, L500.4050, L502.0250, L503.0105 #### [facility] [address] [place], [address] Eosinophils/100 WBC (Bld) 2.6 % Normal 0-5 [facility] Comment on above: Performed By: #### L 100.0100, L500.4100, L500.4050, L502.0250, L503.0105 #### [facility] [address] [place], [address] Erythrocyte distribution width (RBC) [Ratio] 13.2 % Normal 11.6-14.6 [facility] Comment on above: Performed By: #### L 100.0100, L500.4100, L500.4050, L502.0250, L503.0105 #### [facility] [address] [place], [address] Hematocrit (Bld) [Volume fraction] 44.8 % Normal 40-54 [facility] Comment on above: Performed By: #### L 100.0100, L500.4100, L500.4050, L502.0250, L503.0105 #### [facility] [address] [place], [address] Hemoglobin (Bld) [Mass/Vol] 15.2 g/dL Normal 13.0-16.5 [facility] Comment on above: Performed By: #### L 100.0100, L500.4100, L500.4050, L502.0250, L503.0105 #### [facility] [address] [place], [address] IG% 0.200 Normal 0.0-0.9 [facility] Comment on above: Result Comment: IG% - Immature Granulocytes (promyelocytes, myelocytes and metamyelocytes) > 1% indicates that a LEFT SHIFT is Present. Performed By: #### L 100.0100, L500.4100, L500.4050, L502.0250, L503.0105 #### [facility] [address] [place], [address] Lymphocytes/100 WBC (Bld) 29.3 % Normal 19-41 [facility] Comment on above: Performed By: #### L 100.0100, L500.4100, L500.4050, L502.0250, L503.0105 #### [facility] [address] [place], [address] MCH (RBC) [Entitic mass] 30.1 pg Normal 27.0-32.0 [facility] Comment on above: Performed By: #### L 100.0100, L500.4100, L500.4050, L502.0250, L503.0105 #### [facility] [address] [place], [address] MCHC (RBC) [Mass/Vol] 33.9 g/dL Normal 32-36 [facility] Comment on above: Performed By: #### L 100.0100, L500.4100, L500.4050, L502.0250, L503.0105 #### [facility] [address] [place], [address] MCV (RBC) [Entitic vol] 88.7 fL Normal 80-94 [facility] Comment on above: Performed By: #### L 100.0100, L500.4100, L500.4050, L502.0250, L503.0105 #### [facility] [address] [place], [address] Monocytes/100 WBC (Bld) 8.1 % Normal 0-10 [facility] [facility] Comment on above: Performed By: #### L 100.0100, L500.4100, L500.4050, L502.0250, L503.0105 #### [facility] [address] [place], [address] Neutrophils/100 WBC (Bld) 59.4 % Normal 47-70 [facility] Comment on above: Performed By: #### L 100.0100, L500.4100, L500.4050, L502.0250, L503.0105 #### [facility] [address] [place], [address] Nucleated RBC (Bld) [#/Vol] 0 10*3/uL Normal 0-5 [facility] Comment on above: Performed By: #### L 100.0100, L500.4100, L500.4050, L502.0250, L503.0105 #### [facility] [address] [place], [address] Platelet mean volume (Bld) [Entitic vol] 9.6 fL Normal 6.2-12.0 [facility] Comment on above: Performed By: #### L 100.0100, L500.4100, L500.4050, L502.0250, L503.0105 #### [facility] [address] [place], [address] Platelets (Bld) [#/Vol] 222 10*3/uL Normal 150-450 [facility] Comment on above: Performed By: #### L 100.0100, L500.4100, L500.4050, L502.0250, L503.0105 #### [facility] [address] [place], [address] RBC (Bld) [#/Vol] 5.05 10*6/uL Normal 4.6-6.2 [facility] Comment on above: Performed By: #### L 100.0100, L500.4100, L500.4050, L502.0250, L503.0105 #### [facility] [address] [place], [address] RDW SD 42.8 fl Normal 35.1-43.9 [facility] Comment on above: Performed By: #### L 100.0100, L500.4100, L500.4050, L502.0250, L503.0105 #### [facility] [address] [place], [address] WBC (Bld) [#/Vol] 4.9 10*3/uL Normal 4.4-11.0 [facility] Comment on above: Performed By: #### L 100.0100, L500.4100, L500.4050, L502.0250, L503.0105 #### [facility] [address] [place], [address] Comprehensive Metabolic Prof ilon 08-02-2024 Albumin [Mass/Vol] 4.9 g/dL Normal 3.2-5.0 [facility] Comment on above: Performed By: #### L 100.0100, L500.4100, L500.4050, L502.0250, L503.0105 #### [facility] [address] [place], [address] Albumin/Globulin [Mass ratio] 1.4 {ratio} Normal 0.9-2.4 [facility] Comment on above: Performed By: #### L 100.0100, L500.4100, L500.4050, L502.0250, L503.0105 #### [facility] [address] [place], [address] ALK P 43 U/L Low 45-117 [facility] Comment on above: Performed By: #### L 100.0100, L500.4100, L500.4050, L502.0250, L503.0105 #### [facility] [address] [place], [address] ALT [Catalytic activity/Vol] 101 U/L High 16-61 [facility] Comment on above: Performed By: #### L 100.0100, L500.4100, L500.4050, L502.0250, L503.0105 #### [facility] [address] [place], [address] AST [Catalytic activity/Vol] 46 U/L High 15-37 [facility] Comment on above: Performed By: #### L 100.0100, L500.4100, L500.4050, L502.0250, L503.0105 #### [facility] [address] [place], [address] Bilirubin [Mass/Vol] 1.10 mg/dL High 0.20-1.00 [facility] Comment on above: Result Comment: For patients on eltrombopag therapy, use of Dimension [place] TBIL is not recommended. Performed By: #### L 100.0100, L500.4100, L500.4050, L502.0250, L503.0105 #### [facility] [address] [place], [address] BUN/CRE 17.1 RATIO Normal 10-20 [facility] Comment on above: Performed By: #### L 100.0100, L500.4100, L500.4050, L502.0250, L503.0105 #### [facility] [address] [place], [address] CA,Total 9.5 mg/dL Normal 8.5-10.1 [facility] Comment on above: Performed By: #### L 100.0100, L500.4100, L500.4050, L502.0250, L503.0105 #### [facility] [address] [place], [address] Chloride [Moles/Vol] 103 mmol/L Normal 98-107 [facility] Comment on above: Performed By: #### L 100.0100, L500.4100, L500.4050, L502.0250, L503.0105 #### [facility] [address] [place], [address] CO2 [Moles/Vol] 27.0 mmol/L Normal 21.0-32.0 [facility] Comment on above: Performed By: #### L 100.0100, L500.4100, L500.4050, L502.0250, L503.0105 #### [facility] [address] [place], [address] Creatinine [Mass/Vol] 1.00 mg/dL Normal 0.70-1.30 [facility] Comment on above: Result Comment: The validity of the calculated GFR GFRAA in patients over 70 years has not been determined. Clinical correlation is essential. Performed By: #### L 100.0100, L500.4100, L500.4050, L502.0250, L503.0105 #### [facility] [address] [place], [address] EST GFR - AA 106 mL/min Normal >60 [facility] Comment on above: Result Comment: Afri can Tanzanian GFR Calc Performed By: #### L 100.0100, L500.4100, L500.4050, L502.0250, L503.0105 #### [facility] [address] [facility] [address] GAP 7 Normal 5-15 [facility] Comment on above: Performed By: #### L 100.0100, L500.4100, L500.4050, L502.0250, L503.0105 #### [facility] [address] [place], [address] GFR/1.73 sq M.predicted among non-blacks MDRD (S/P/Bld) [Vol rate/Area] 88 mL/min/{1.73_m2} Normal >60 [facility] Comment on above: Result Comment: Non- GFR Calc Performed By: #### L 100.0100, L500.4100, L500.4050, L502.0250, L503.0105 #### [facility] [address] [place], [address] Globulin (S) [Mass/Vol] 3.4 g/dL Normal 2.2-4.2 [facility] Comment on above: Performed By: #### L 100.0100, L500.4100, L500.4050, L502.0250, L503.0105 #### [facility] [address] [place], [address] Glucose [Mass/Vol] 161 mg/dL High 74-106 [facility] Comment on above: Result Comment: Fast ing Glucose result greater than or equal to 126 mg/dL suggests DIABETES MELLITUS per A.D.A. criteria. Performed By: #### L 100.0100, L500.4100, L500.4050, L502.0250, L503.0105 #### [facility] [address] [place], [address] Potassium [Moles/Vol] 3.8 mmol/L Normal 3.5-5.1 [facility] Comment on above: Performed By: #### L 100.0100, L500.4100, L500.4050, L502.0250, L503.0105 #### [facility] [address] [place], [address] Sodium [Moles/Vol] 138 mmol/L Normal 136-145 [facility] Comment on above: Performed By: #### L 100.0100, L500.4100, L500.4050, L502.0250, L503.0105 #### [facility] [address] [place], [address] T PROT 8.3 g/dL High 6.4-8.2 [facility] Comment on above: Performed By: #### L 100.0100, L500.4100, L500.4050, L502.0250, L503.0105 #### [facility] [address] [place], [address] Urea nitrogen [Mass/Vol] 17 mg/dL Normal 7-18 [facility] Comment on above: Performed By: #### L 100.0100, L500.4100, L500.4050, L502.0250, L503.0105 #### [facility] [address] [place], [address] Internal Medicine Office Vis itosepideh 08-02-2024 Internal Medicine Office Visit [facility] [place] [address] [place] [address] OFFICE VISIT Date of Service: 08/02/24 MR#: [id number] Acct: [id number] Name: JEN MORALES Rep #: [id number] : 1980 Provider: Dr. 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 Accompanied by: Self Is patient in pain?: No Allergies No Known Allergies Allergy (Verified 08/02/24 09:10) Medications ???Medication ???Instructions ???Recorded ???Confirmed ???Type multivitamin 1 tab PO DAILY 06/29/21 08/02/24 History ramipril 5 mg capsule 5 mg PO DAILY #90 caps 10/20/23 08/02/24 Rx glimepiride 4 mg tablet 4 mg PO BID #180 tabs 01/04/24 08/02/24 Rx blood sugar diagnostic (FreeStyle #100 ea 02/07/24 08/02/24 Rx Test strips) omega-3 fatty acids 1,000 mg 1,000 mg PO BID #180 caps 02/27/24 08/02/24 Rx capsule fenofibrate 54 mg tablet See Rx Instructions .Route 06/03/24 08/02/24 Rx .COMPLEX #90 tabs dapagliflozin propanediol 10 mg See Rx Instructions .Route 07/11/24 08/02/24 Rx tablet (Farxiga) .COMPLEX #90 tabs metformin 500 mg tablet,extended 1,000 mg (2 x 500 mg) PO BID #180 08/02/24 08/02/24 Rx release 24 hr tabs tirzepatide 7.5 mg/0.5 mL 7.5 mg (0.5 mL) subcut QWEEK #2 mL 08/02/24 08/02/24 Rx subcutaneous pen injector (Mounjaro) [facility] Medical History (Updated 08/02/24 @ 12:[address] Kimani Mckeon MD) Flu vaccine need Fungal dermatitis Epidermal inclusion cyst Hyperlipidemia Hypertension Localized skin mass, lump, or swelling Type 2 diabetes mellitus Hyperlipemia Diabetes Surgical History History of vasectomy Family History Father Myocardial infarction, Onset Age: 55 Uncle Myocardial infarction, Onset Age: 60 Grandfather Myocardial infarction, Onset Age: 60 Other CVA (cerebral vascular accident) Diabetes High cholesterol Social History Smoking Status: Never smoker alcohol intake: never substance use type: does not use what type of physical activity do you participate in: walking HPI HPI Chief Complaint: FU Chronic Medical Conditions Details: JEN MORALES, is a 44 M who presents to the office today for follow-up of his chronic medical conditions. History of diabetes mellitus type 2, A1c today is at 7.9 down from 9.5. He states that he has been taking his medication consistently and has been trying to make better dietary choices. No significant concerns for hypoglycemia. History of hypertension, blood pressure today is at 122/70 mmHg. No chest pain, palpitation or shortness of breath. Other chronic medical conditions are stable. ROS Const Constitutional: No body ache, chills, excessive sweating, fatigue, fever(s), frequent falls, headache(s), snoring, weakness, weight change or change in appetite Eyes Eyes: No blurry vision, change in vision, bulging eyes, floaters, visual disturbances, eye pain or Light sensitivity ENT ENT: No abnormal hearing, ear or mastoid pain, tinnitus, balance problems, nosebleed/epistaxis, nasal congestion, post nasal drip, headache(s), neck pain or sore throat Resp Respiratory: No cough, excessive phlegm production, pain on inspiration, shortness of breath, snoring or wheezing Cardio Cardiology: No chest pain at rest, chest pain with exertion, excessive sweating, dyspnea on exertion, lightheadedness, orthopnea or palpitations Gastro GI: No abdominal pain, change in bowel habits, constipation, cramping, diarrhea, nausea/dyspepsia or vomiting Genitourinary Male: No burning urination, painful urination, urinary incontinence or urinary frequency Musc Musculoskeletal: No abnormal gait, joint pain, back pain, limited range of motion, muscle weakness, neck pain or numbness Skin Skin: No dry skin, redness, excessive hair growth, yellowing of the eye, lesions, itchy eyes, rash or wounds Neuro Neurology: No abnormal gait, abnormal hearing, behavioral changes, unsteady gait/balance, weakness, frequent falls, headache(s), memory loss, numbness or visual disturbances Psych Psychiatric: No anxiety, No behavioral changes, No change in appetite, No depression, No memory loss and No Thoughts of harming yourself/Others Endo Endocrine: No cold intoleran (more content not included)... Normal [facility] Lipid Profileon 08-02-2024 Cholesterol [Mass/Vol] 214 mg/dL High 200 [facility] Comment on above: Result Comment: <200 mg/dL Desirable 200-240 mg/dL Borderline >240 mg/dL High Risk Performed By: #### L 100.0100, L500.4100, L500.4050, L502.0250, L503.0105 #### [facility] [address] [place], [address] Cholesterol in HDL [Mass/Vol] 38 mg/dL Low [facility] Comment on above: Result Comment: The drugs N-Acetylcysteine and Metamizole may falsely depress this assay. Reference Range HDL <40 mg/dL Low HDL Cholesterol HDL >or= 60 mg/dL High HDL Cholesterol Performed By: #### L 100.0100, L500.4100, L500.4050, L502.0250, L503.0105 #### [facility] [address] [place], [address] Cholesterol in LDL [Mass/Vol] 132 mg/dL High 0-130 [facility] Comment on above: Performed By: #### L 100.0100, L500.4100, L500.4050, L502.0250, L503.0105 #### [facility] [address] [place], [address] Cholesterol in VLDL [Mass/Vol] 44 mg/dL High 5-40 [facility] Comment on above: Performed By: #### L 100.0100, L500.4100, L500.4050, L502.0250, L503.0105 #### [facility] [address] [place], [address] Triglyceride [Mass/Vol] 222 mg/dL High [facility] Comment on above: Result Comment: The drugs N-Acetylcysteine and Metamizole may falsely depress this assay. Serum Triglycerides Reference Interval Normal <150 mg/dL Borderline high 150 - 199 mg/dL High 200 - 499 mg/dL Very High > or = 500 mg/dL Performed By: #### L 100.0100, L500.4100, L500.4050, L502.0250, L503.0105 #### [facility] [address] [place], [address] Microalb:Creat Ratio,Random URon 08-02-2024 Creatinine [Mass/Vol] 110.00 mg/dL Normal NO RANGE EST . [facility] Comment on above: Performed By: #### L 100.0100, L500.4100, L500.4050, L502.0250, L503.0105 #### [facility] [address] [place], [address] MALB:CRE 10.3 mg/g CRE Normal <30 mg/g CRE [facility] Comment on above: Performed By: #### L 100.0100, L500.4100, L500.4050, L502.0250, L503.0105 #### [facility] [address] [place], [address] MICROALBUMIN,UR 11.3 mg/L Normal NO RANGE EST. [facility] Comment on above: Performed By: #### L 100.0100, L500.4100, L500.4050, L502.0250, L503.0105 #### [facility] [address] [place], [address] Vitamin B12on 08-02-2024 Cobalamin (Vitamin B12) [Mass/Vol] 450 pg/mL Normal 211-911 [facility] Comment on above: Performed By: #### L 100.0100, L500.4100, L500.4050, L502.0250, L503.0105 #### [facility] [address] [place], [address] Absolute lymphocyte countOrd ered By: Dr. Mckeon on 11-11-2022 Lymphocytes Auto (Unsp spec) [#/Vol] 1.50 10*3/uL 0.83-4.51 [facility] Basophil percentageOrdered B y: Dr. Mckeon on 11-11-2022 Basophils/100 WBC (Bld) 0.2 % 0-1 [facility] Bilirubin [Mass/Vol] 1.40 mg/dL 0.20-1.00 [facility] Comment on above: For patients on eltr ombopag therapy, use of Dimension [place] TBIL is not recommended. Chloride [Moles/Vol] 103 mmol/L 98-107 [facility] Cholesterol [Mass/Vol] 125 mg/dL <200 [facility] Comment on above: <200 mg/dL Desirable 200-240 mg/dL Borderline >240 mg/dL High Risk Eosinophils/100 WBC (Bld) 2.0 % 0-5 [facility] Glucose [Mass/Vol] 171 mg/dL 74-106 [facility] Comment on above: Fasting Glucose resu lt greater than or equal to 126 mg/dL suggests DIABETES MELLITUS per A.D.A. criteria. Neutrophils (Bld) [#/Vol] 4.3 10*3/uL 2.0-7.7 [facility] Neutrophils/100 WBC (Bld) 66.7 % 47-70 [facility] Potassium [Moles/Vol] 3.6 mmol/L 3.5-5.1 [facility] Protein [Mass/Vol] 7.8 g/dL 6.4-8.2 [facility] Sodium [Moles/Vol] 142 mmol/L 136-145 [facility] Triglyceride [Mass/Vol] 378 mg/dL <199 [facility] Comment on above: The drugs N-Acetylcy steine and Metamizole may falsely depress this assay.Serum Triglycerides Reference Interval Normal <150 mg/dL Borderline high 150 - 199 mg/dL High 200 - 499 mg/dL Very High > or = 500 mg/dL WBC (Bld) [#/Vol] 6.4 10*3/uL 4.4-11.0 [facility] Blood erythrocytes count (nu mber/volume)Ordered By: Dr. Mckeon on 11-11-2022 RBC (Bld) [#/Vol] 4.95 10*6/uL 4.6-6.2 [facility] Blood hemoglobin measurement (mass/volume)Ordered By: Dr. Mckeon on 11-11-2022 Hemoglobin (Bld) [Mass/Vol] 14.7 g/dL 13.0-16.5 [facility] Blood lymphocytes/100 leukoc ytesOrdered By: Dr. Mckeon on 11-11-2022 Lymphocytes/100 WBC (Bld) 23.4 % 19-41 [facility] Blood monocytes/100 leukocyt esOrdered By: Dr. Mckeon on 11-11-2022 Monocytes/100 WBC (Bld) 7.2 % 0-10 [facility] Blood platelet mean volumeOr dered By: Dr. Mckeon on 11-11-2022 Platelet mean volume (Bld) [Entitic vol] 9.3 fL 6.2-12.0 [facility] Determination of erythrocyte mean corpuscular volume (MCV)Ordered By: Dr. Mckeon on 11-11-2022 MCV (RBC) [Entitic vol] 89.1 fL 80-94 [facility] Hematocrit Auto (Bld) [Volum e fraction]Ordered By: Dr. Mckeon on 11-11-2022 Hematocrit (Bld) [Volume fraction] 44.1 % 40-54 [facility] - Chemistry and C hemistry - challengeOrdered By: Dr. Mckeon on 11-11-2022 ALP [Catalytic activity/Vol] 41 U/L 45-117 [facility] ALT [Catalytic activity/Vol] 74 U/L 16-61 [facility] CO2 [Moles/Vol] 28.0 mmol/L 21.0-32.0 [facility] Globulin (S) [Mass/Vol] 3.0 g/dL 2.2-4.2 [facility] Urea nitrogen/Creatinine [Mass ratio] 17.1 mg/mg 10-20 [facility] - Hematology and Cell countsOrdered By: Dr. Mckeon on 11-11-2022 Erythrocyte distribution width (RBC) [Entitic vol] 42.6 fL 35.1-43.9 [facility] Erythrocyte distribution width (RBC) [Ratio] 13.1 % 11.6-14.6 [facility] Immature granulocytes/100 WBC (Bld) 0.500 % 0.0-0.9 [facility] Comment on above: IG% - Immature Granu locytes (promyelocytes, myelocytes and metamyelocytes) > 1% indicates that a LEFT SHIFT is Present. MCH (RBC) [Entitic mass] 29.7 pg 27.0-32.0 [facility] Nucleated RBC/100 WBC (Bld) [Ratio] 0 % 0-5 [facility] - Hematology and Cell countson 11-11-2022 HbA1c (Bld) [Mass fraction] 7.7 % 4.2-6.3 [facility] MCHC Auto (RBC) [Mass/Vol]Or dered By: Dr. Mckeon on 11-11-2022 MCHC (RBC) [Mass/Vol] 33.3 g/dL 32-36 [facility] No Panel InformationOrdered By: Dr. Mckeon on 11-11-2022 Estimated GFR (MDRD) Amer 107 mL/min >60 [facility] Comment on above: GFR Calc Estimated GFR (MDRD) Non-Af Amer 88 mL/min >60 [facility] Comment on above: Non- GFR Calc Urine Microalbumin/Creatinin e Ratio 10.6 mg/g CRE <30 [facility] Platelets bldOrdered By: Dr. Mckeon on 11-11-2022 Platelets (Bld) [#/Vol] 228 10*3/uL 150-450 [facility] Serum or plasma albumin zackery urement (mass/volume)Ordered By: Dr. Mckeon on 11-11-2022 Albumin [Mass/Vol] 4.8 g/dL 3.2-5.0 [facility] Serum or plasma albumin/glob ulin mass ratioOrdered By: Dr. Mckeon on 11-11-2022 Albumin/Globulin [Mass ratio] 1.6 {ratio} 0.9-2.4 [facility] Serum or plasma calcium zackery urement (mass/volume)Ordered By: Dr. Mckeon on 11-11-2022 Calcium [Mass/Vol] 9.9 mg/dL 8.5-10.1 [facility] Serum or plasma cholesterol in HDL measurement (mass/volume)Ordered By: Dr. Mckeon on 11-11-2022 Cholesterol in HDL [Mass/Vol] 35 mg/dL >40 [facility] Comment on above: The drugs N-Acetylcy steine and Metamizole may falsely depress this assay. Reference Range HDL <40 mg/dL Low HDL Cholesterol HDL >or= 60 mg/dL High HDL Cholesterol Serum or plasma cholesterol in VLDL measurement (mass/volume)Ordered By: Dr. Mckeon on 11-11-2022 Cholesterol in VLDL [Mass/Vol] 76 mg/dL 5-40 [facility] Serum or plasma creatinine m easurement (mass/volume)Ordered By: Dr. Mckeon on 11-11-2022 Creatinine [Mass/Vol] 0.99 mg/dL 0.70-1.30 [facility] Comment on above: The validity of the calculated GFR & GFRAA in patients over 70 years has not been determined. Clinical correlation is essential. Serum or plasma low density lipoprotein (LDL) cholesterol measurement (mass/volume)Ordered By: Dr. Mckeon on 11-11-2022 Cholesterol in LDL [Mass/Vol] 14 mg/dL 0-130 [facility] Serum or plasma urea nitroge n measurement (mass/volume)Ordered By: Dr. Mckeon on 11-11-2022 Urea nitrogen [Mass/Vol] 17 mg/dL 7-18 [facility] Thin prep Papanicolaou smear with manual screeningOrdered By: Dr. Mckeon on 11-11-2022 Thin prep Papanicolaou smear with manual screening 35 U/L 15-37 [facility] Thin prep Papanicolaou smear with manual screening 11 5-15 [facility] Thin prep Papanicolaou smear with manual screening 5.4 mg/L NO RANGE EST. [facility] Urine creatinine measurement (mass/volume)Ordered By: Dr. Mckeon on 11-11-2022 Creatinine (U) [Mass/Vol] 50.80 mg/dL NO RANGE EST. [facility] Whole blood hemoglobin A1c/t otal hemoglobin ratio (mass fraction)Ordered By: Dr. Mckeon on 11-11-2022 HbA1c (Bld) [Mass fraction] 7.9 % 3.8-5.6 [facility] Comment on above: Normal < 5.7 % Predi abetic 5.7 - 6.4 % Diabetic >or= 6.5 % Please note range changes. Laboratory - Microbiology an d Antimicrobial susceptibilityon 09-23-2022 S. pyogenes Ag IA Ql (Unsp spec) Negative [facility] Vital Signs Date Time Vital Sign Value Performing Clinician Faci lity 03-07-2025 10:44-0400 Body height 177.[address] Kimani Mckeon MD Work Phone: [facility] 03-07-2025 10:44-0400 Body mass index (BMI) [Ratio] 27.1 kg/m2 Dr. Kimani Mckeon MD Work Phone: [facility] 03-07-2025 10:44-0400 Body temperature 97.4 [degF] Dr. Kimani Mckeon MD Work Phone: [facility] 03-07-2025 10:44-0400 Body weight 85.[address] Kimani Mckeon MD Work Phone: [facility] 03-07-2025 10:44-0400 Diastolic blood pressure 76 mm[Hg] Dr. Kimani Mckeon MD Work Phone: [facility] 03-07-2025 10:44-0400 Heart rate 95 /min Dr. Kimani Mckeon MD Work Phone: [facility] 03-07-2025 10:44-0400 Respiratory rate 16 /min Dr. Kimani Mckeon MD Work Phone: [facility] 03-07-2025 10:44-0400 SaO2% (BldA) [Mass fraction] 99 % Dr. Kimani Mckeon MD Work Phone: [facility] 03-07-2025 10:44-0400 Systolic blood pressure 104 mm[Hg] Dr. Kimani Mckeon MD Work Phone: [facility] 11-11-2022 14:54-0400 Body height 177.[address] Kimani Mckeon Work Phone: [facility] 11-11-2022 14:54-0400 Body mass index (BMI) [Ratio] 28.3 kg/m2 Dr. Kimani Mckeon Work Phone: [facility] 11-11-2022 14:54-0400 Body temperature 98.3 [degF] Dr. Kimani Mckeon Work Phone: [facility] 11-11-2022 14:54-0400 Body weight 89.[address] Kimani Mckeon Work Phone: [facility] 11-11-2022 14:54-0400 Diastolic blood pressure 78 mm[Hg] Dr. Kimani Mckeon Work Phone: [facility] 11-11-2022 14:54-0400 Heart rate 108 /min Dr. Kimani Mckeon Work Phone: [facility] 11-11-2022 14:54-0400 Respiratory rate 16 /min Dr. Kimani Mckeon Work Phone: [facility] 11-11-2022 14:54-0400 SaO2% (BldA) [Mass fraction] 97 % Dr. Kimani Mckeon Work Phone: [facility] 11-11-2022 14:54-0400 Systolic blood pressure 118 mm[Hg] Dr. Kimani Mckeon Work Phone: [facility] 09-23-2022 16:59-0400 Body temperature 97.3 [degF] Dr. Kimani Mckeon Work Phone: [facility] 09-23-2022 16:59-0400 Diastolic blood pressure 76 mm[Hg] Dr. Kimani Mckeon Work Phone: [facility] 09-23-2022 16:59-0400 Heart rate 90 /min Dr. Kimani Mckeon Work Phone: [facility] 09-23-2022 16:59-0400 Respiratory rate 16 /min Dr. Kimani Mckeon Work Phone: [facility] 09-23-2022 16:59-0400 SaO2% (BldA) [Mass fraction] 97 % Dr. Kimani Mckeon Work Phone: [facility] 09-23-2022 16:59-0400 Systolic blood pressure 108 mm[Hg] Dr. Kimani Mckeon Work Phone: [facility] Encounters Encounter Date Encounter Type Care Provider Facility Start: 04-25-2025 ambulatory Kimani Mckeon Facili ty:[facility] Start: 04-11-2025 ambulatory Efyvette Wilsonyesenia Facili ty:[facility] Start: 03-07-2025 End: 03-07-[address] Kimani Mckeon MD -[facility] Work Phone: Start: 03-07-2025 End: 03-07-[address] Kimani Mckeon MD Work Phone: -[facility] Start: 02-26-2025 End: 02-26-2025 Telemedicine consultation with patient Jarred Giraldo MD, PhD Work Phone: Gastroenterology Start: 02-26-2025 End: 02-26-2025 ambulatory Jarred Giraldo MD, PhD Work Phone: Gastroenterology Comment on above: Hypertriglyceridemia (Primary Dx); Hepatic steatosis; Elevated LDL cholesterol level; Elevated cholesterol; Family history of heart disease; Hyperlipidemia with target LDL less than 100 Start: 12-24-2024 End: 12-24-2024 E-mail encounter from caregiver Karri Hernandez APRN.CNP Work Phone: [facility] Start: 12-24-2024 End: 12-24-2024 Patient encounter procedure Karri Hernandez APRN.PROJECT SUPERINTENDENT Work Phone: [facility] [place] Comment on above: multidisciplinary [facility] Start: 12-20-2024 End: 12-20-2024 Patient encounter procedure Hepatology Procedures A5 Work Phone: Gastroenterology Start: 12-20-2024 End: 12-20-2024 ambulatory KARRI HERNANDEZ [facility] Comment on above: Arrived Start: 12-09-2024 End: 02-08-2025 Follow-up encounter Karri Hernandez APRN.CNP Work Phone: [facility] [place] Start: 12-05-2024 End: 12-05-2024 ambulatory KARRI HERNANDEZ Facility:[facility] Start: 11-28-2024 End: 11-28-2024 ambulatory KARRI HERNANDEZ Facility:[facility] Start: 09-11-2024 End: 10-16-2024 Telephone encounter Karri Hernandez APRN.CNP Work Phone: [facility] Comment on above: Appointment Start: 08-06-2024 End: 08-06-2024 ambulatory [facility] Mike Facility:[facility] Start: 08-02-2024 End: 08-02-2024 ambulatory [facility] jeffersongay Mckeon Facility:[facility] Start: 08-02-2024 End: 08-02-2024 ambulatory [facility] Marvyesenia Facility:[facility] Start: 11-11-2022 End: 11-11-[address] Kimani Mckeon Work Phone: [facility] Work Phone: Start: 11-11-2022 End: 11-11-[address] Kimani Mckeon Work Phone: [facility] Start: 11-11-2022 End: 11-11-[address] Kimani Mckeon Work Phone: [facility] Start: 09-23-2022 End: 09-23-[address] Kimani Mckeon Work Phone: [facility] Start: 07-10-2022 Refill Shashi Killian APRN.CNP, DNP Work Phone: [facility] Comment on above: Refill Request Start: 06-07-2022 Refill Shashi Killian APRN.PERRY COTTRELL Work Phone: [facility] Comment on above: Refill Request Procedures Date Procedure Procedure Detail Performing Clinician Start: 12-20-2024 Liver elastography w /o imag w/i&r Karri Hernandez PATROL CAPTAIN.SIMBA Work Phone: Start: 05-15-2020 Lipid 1996 panel - S zonia or Plasma Karri Hernandez PATROL CAPTAIN.SIMBA Work Phone: H/O: vasectomy History of vasectomy Dr. Yesenia Mckeon Work Phone: Plan of Treatment Date Care Activity Detail Author Start: 05-15-2025 Lipid panel Lipid Screening [facility] Start: 03-10-2025 Influenza vaccination Influenza Vaccine (#1) [facility] Start: 02-26-2025 End: 02-26-2025 ambulatory 02/26/2025 9:30 AM EDT [facility] [address] [address] Jarred Giraldo MD, PhD [address] [address] Hepatic steatosis [K76.0] Gastroenterology Comment on above: Hepatic steatosis [K76.0] Start: 11-28-2024 End: 11-28-2024 Patient encounter procedure 11/28/2024 8:00 AM EDT Office Visit [facility] [address] [place] [address] Karri Hernandez PATROL CAPTAIN.PROJECT SUPERINTENDENT [address] [place] [address] (LM to r/s on 09/23 LVM X2 and MyChart- EJ) fatty liver [facility] Comment on above: (LM to r/s on 09/23 LVM X2 and MyChart- E J) fatty liver Start: 03-10-2024 Covid-19 Vaccine ( season) Covid-19 Vaccine () [facility] Start: 03-10-2024 Influenza vaccination Influenza Vaccine (#1) [facility] Start: 07-10-2022 DEPRESSION ASSESSMENT DEPRESSION ASSESSMENT [facility] Start: 03-10-2022 Influenza vaccination INFLUENZA (#1) [facility] Start: 07-10-2021 DEPRESSION ASSESSMENT DEPRESSION ASSESSMENT [facility] Start: 07-09-2021 COVID-19 VACCINE (4 - Booster for Moderna series) COVID-19 VACCINE (4 - Booster for Moderna series) [facility] Start: 07-06-2021 Urine microalbumin profile [facility] oksana Start: 05-18-2021 3 comp foot exam completed DIABETIC FOOT EXAM [facility] oksana Start: 05-18-2021 ANNUAL PCP TEAM CHRONIC DISEASE VISIT ANNUAL PCP TEAM CHRONIC DISEASE VISIT [facility] Start: 05-15-2021 Hepatitis B screening URINE ALBUMIN:CREATININE RATIO [facility] Start: 05-15-2021 Hepatitis B surface antibody level LDL CHOLESTEROL [facility] Start: 08-15-2020 Hemoglobin A1c/Hemoglobin.total in Blood HBA1C [facility] Start: 06-10-2020 Hepatitis C antibody, confirmatory test DILATED RETINAL EXAM [facility] Start: 09-09-2014 PNEUMOCOCCAL (2 - PCV) PNEUMOCOCCAL (2 - PCV) [facility] Start: 2009 HPV Vaccine (1 - 3-dose SCDM series) HPV Vaccine (1 - 3-dose SCDM series) [facility] Start: 2001 Hepatitis B Vaccine (1 of 3 - 19+ 3-dose series) Hepatitis B Vaccine (1 of 3 - 19+ 3-dose series) [facility] Start: 2000 Anxiety Screening Anxiety Screening [facility] Start: 2000 Depression Screening Depression Screening [facility] Start: 1982 HEPATITIS B (1 of 3 - 3-dose series) HEPATITIS B (1 of 3 - 3-dose series) [facility] CBC W Auto Different ial panel - Blood [facility] Comprehensive metabo lic 1999 panel - Serum or Plasma [facility] CT angiography of co ronary arteries [facility] Electrocardiographic procedure [facility] Hemoglobin A1c/Hemoglobin.total in Blood [facility] End: 02-26-2026 Lipid 1995 panel - Serum or Plasma LIPID PANEL, FASTING Lab Routine Hypertriglyceridemia Elevated LDL cholesterol level Elevated cholesterol Every 3 months for 4 Occurrences starting 02/26/2025 until 02/26/2026 [facility] Work Phone: Comment on above: Every 3 months for 4 Occurrences startin g 02/26/2025 until 02/26/2026 Lipid 1996 panel - S zonia or Plasma [facility] Lipoprotein a [Mass/volume] in Serum or Plasma [facility] Urine microalbumin/creatinine ratio measurement [facility] Immunizations Immunization Date Immunization Notes Care Provider Chioma tavera 08-02-2024 influenza, injectabl e, madin agustin canine kidney, preservative free Dr. Kimani Mckeon MD Work Phone: [facility] 08-02-2024 influenza virus vacc ine, unspecified formulation Karri Hernandez APRN.[facility] Work Phone: [facility] 05-14-2021 COVID-19 original vaccine, age 12+ yr, monovalent ([employer] - PURPLE TOP) Shashi Killian APRN.[facility] Work Phone: [facility] 10-17-2020 COVID-19 original vaccine, full dose, monovalent (MODERNA) Shashi Killian APRN.[facility] Work Phone: [facility] 05-04-2020 influenza virus vacc ine, unspecified formulation Karri Hernandez APRN.[facility] Work Phone: [facility] 04-01-2019 influenza, seasonal, injectable Shashi Killian APRN.[facility] Work Phone: [facility] 09-09-2013 pneumococcal polysaccharide vaccine, 23 valent Shashi Killian APRN.[facility] Work Phone: [facility] 05-14-2013 influenza virus vacc ine, unspecified formulation Shashi Killian APRN.[facility] Work Phone: [facility] 04-25-2012 influenza virus vacc ine, unspecified formulation Shashi Killian APRN.[facility] Work Phone: [facility] 07-06-2011 tetanus toxoid, redu juani diphtheria toxoid, and acellular pertussis vaccine, adsorbed Shashi Killian APRN.[facility] Work Phone: [facility] Payers Date Payer Category Payer Unknown [id number] 2024 Self-pay [id number] 2020 [employer] BLUE CARD PPO OOS [id number] 2020 Unknown [employer] BLUE CARD PPO OOS [id number] 2020-Present [phone] [place] [address] PPO [id number] 2020 Unknown [id number] Private Health Insurance [id number] Unknown [facility] [id number] Unknown [id number] Unknown [id number] Unknown [id number] Unknown [id number] Unknown [id number] Unknown [id number] Social History Date Type Detail Facility Start: 08-16-2023 Tobacco smoking status NHIS Never smoked tobacco [facility] Start: 02-23-2022 End: 11-28-2024 Alcohol intake Current drinker of alcohol (finding) [facility] Start: 05-16-2020 History SDOH Alcohol Frequency 2 [facility] Start: 05-16-2020 History SDOH Alcohol Std Drinks 1 [facility] Start: 05-16-2020 History SDOH Social Connections Phone 5 [facility] Start: 05-16-2020 History SDOH Social Connections Get Together 3 [facility] Start: 05-15-2020 Education 18 [facility] Start: 1980 Sex Assigned At Male [facility] Start: 11-11-2022 Tobacco smoking status NHIS Unknown if ever smoked [facility] Start: 05-15-2020 End: 11-28-2024 History of Social function [facility] Start: 05-15-2020 End: 11-28-2024 Social connection and isolation panel [facility] Do you belong to any clubs or organizations such as jainism groups, unions, fraternal or athletic groups, or school groups? Yes [facility] Are you now , , , , never or living with a partner? [facility] How often to you hav e a drink containing alcohol? Monthly or less [facility] How many standard dr inks containing alcohol do you have on a typical day? 1 or 2 [facility] How often do you hav e 6 or more drinks on 1 occasion? Never [facility] Start: 06-10-2012 How hard is it for you to pay for the very basics like food, housing, medical care, and heating Not hard at all [facility] Do you feel stress - tense, restless, nervous, or anxious, or unable to sleep at night because your mind is troubled all the time - these days [OSQ] Only a little [facility] (I/We) worried whesnow er (my/our) food would run out before (I/we) got money to buy more. Never true [facility] In the past 12 month s, was there a time when you were not able to pay the mortgage or rent on time? No [facility] Start: 03-01-2020 Gender identity Identifies as male gender (finding) [facility] Start: 03-01-2020 Sexual orientation Heterosexual (finding) [facility] Medical Equipment Procedure Code Equipment Code Equipment Origin al Text Equipment Identifier Dates TEST BLOOD SUGAR(S) TWICE TIMES DAILY. DX: E11.65 [id number] Start: 11-30-2016 Comment on above: TEST BLOOD SUGAR(S) TWICE TIMES DAILY. DX: E11.65 Blood Sugar Diagnostic (Freestyle Test) strip Start: 02-07-2024 Functional Status Date Assessment Result Facility 12-05-2014 Are you deaf, or do you have serious difficulty hearing No 12/05/2014 8:21 AM Windy Soto MA No [facility] 12-05-2014 Are you blind, or do you have serious difficulty seeing, even when wearing glasses No 12/05/2014 8:21 AM Windy Soto MA [facility] 12-05-2014 Do you have serious difficulty walking or climbing stairs No 12/05/2014 8:21 AM Windy Soto MA No [facility] 12-05-2014 Do you have difficul ty dressing or bathing No 12/05/2014 8:21 AM Windy Soto MA [facility] 12-05-2014 Because of a physica l, mental, or emotional condition, do you have difficulty doing errands alone such as visiting a physician's office or shopping No 12/05/2014 8:21 AM Windy Soto MA [facility] Mental Status Date Assessment Result Facility 12-05-2014 Because of a physica l, mental, or emotional condition, do you have serious difficulty concentrating, remembering, or making decisions No 12/05/2014 8:21 AM Windy Soto MA No [facility] Clinical Notes 07-06-2011 to 02-26-2025 Jarred Giraldo MD, PhD - 02/26/2025 9:28 AM Vee Mejia APRN.SIMBA - 12/20/2024 9:30 AM EDTTelephone Encounter - Luana Sagastume MA - 09/11/2024 2:04 PM EST Note Date & Type Note Facility 08-20-2025 Note HNO ID: [id number] Author: JARRED GIRALDO MD, PhD Service: ? Author Type: Physician Type: Progress Notes Filed: 02/27/2025 14:11 Note Text: 9:28 AM end 9:46 AM VIRTUAL VISIT HEPATOLOGY CONSULT I have communicated my name and active licensure. The patient's identity and physical location were verified at the time of this visit. Either the patient or their legal business services sales representative has been informed of the risks and benefits of -- and alternatives to -- treatment through a remote evaluation and consents to proceed with the evaluation remotely. I had a virtual visit with Mr. Morales today who was referred by Karri Hernandez CNP for evaluation and treatment of hepatic steatosis. A copy of this visit will be sent to the referring physician via the shared medical record. I have personally interviewed and examined this patient and have confirmed or modified the review of systems both general and GI specific in the nursing notes. UPDATED HISTORY: Patient reports that he has had type 2 diabetes for 15 years or more. Has had borderline enzymes for a while. Has been taken off Lipitor in the past. Zetia was added. Also taking fenofibrate. Has AFUA - using CPAP. Thinks he might need a new study. Rare alcohol. No IVDA. Has a family history of elevated triglycerides. Father at 55 - heart disease, Pat uncle in his late 60s and PGF in 60s from heart disease. All had elevated Trig. Started taking Active Liver supplement. Now using [employer] - works better for him for his glucose than Trulicity. PAST MEDICAL HISTORY Diagnosis Date Diabetes mellitus 2006 Type 2 Hyperlipidemia LDL goal < 100 2007 Obstructive sleep apnea 11/24/2016 PAST SURGICAL HISTORY Procedure Laterality Date DRG LYMPH NODE ABSC/LYMPHADENITIS EXTNSV 2006 VASECTOMY UNI/BI SPX W/POSTOP SEMEN EXAMS 07/05/13 FAMILY HISTORY Problem Relation Age of Onset other (hyperlipidemia [Other]) Mother Coronary Artery Disease Father None Brother Diabetes Maternal Grandmother Diabetes Paternal Grandmother Coronary Artery Disease Paternal Grandfather Colon Cancer No Family History Liver Disease No Family History SOCIAL HISTORY[1] Current Outpatient Medications Medication Sig Dispense Refill ZETIA 10 mg tablet Fenofibrate (LOFIBRA) 54 mg tablet FARXIGA 10 mg tablet metFORMIN ER (GLUCOPHAGE XR) 500 mg 24 hr tablet Take 2 tablets by mouth every 12 hours. glimepiride (AMARYL) 4 mg tablet Take 2 tablets by mouth daily with breakfast. 180 tablet 1 ramipril (ALTACE) 5 mg capsule Take 1 capsule by mouth once daily. 90 capsule 1 omega-3 acid ethyl esters (LOVAZA) 1 gram capsule Take 2 capsules by mouth twice daily. 360 capsule 3 dulaglutide (TRULICITY) 3 mg/0.5 mL pen injector Inject 3 mg subcutaneously one time a week. 12 Each 3 blood sugar diagnostic (FREESTYLE LITE STRIPS) test strip TEST BLOOD SUGAR(S) TWICE TIMES DAILY. DX: E11.65 200 Strip 3 Blood-Glucose Meter (FREESTYLE LITE METER) monitoring kit DX: 250.00 1 Each 0 No current facility-administered medications for this visit. ALLERGIES No Known Allergies REVIEW OF SYSTEMS: PAIN ASSESSMENT: Negative for pain, history of chronic pain, or current treatment for a chronic pain condition. GENERAL: Weight loss RESPIRATORY: Negative for cough, hemoptysis, wheezing, COPD, dyspnea or shortness of breath CARDIOVASCULAR: Negative for chest pain, leg swelling, hypertension, CHF or palpitations PHYSICAL FINDINGS OF NOTE: General - Normal, healthy, cooperative, in no acute distress Able to interact verbally by video conference Psych - ORIENTATION: normal to time place, person and situation Mood/Affect: AFFECT AND MOOD: Normal REVIEWED ITEMS MELD 3 would be 5 assuming INR of 1.0 Latest Ref Rng 02/23/2018 09/07/2018 04/06/2019 05/15/2020 12/05/2024 Protein, Total 6.3 - 8.0 g/dL 6.6 8.0 7.3 7.6 7.5 Albumin 3.9 - 4.9 g/dL 5.0 (H) 5.3 (H) 5.0 (H) 5.2 (H) 4.9 Calcium 8.5 - 10.2 mg/dL 9.7 9.8 9.5 9.5 Bilirubin, Total 0.2 - 1.3 mg/dL 1.4 (H) 1.4 (H) 1.1 1.7 (H) 0.8 Alkaline Phosphatase 38 - 113 U/L 33 (L) 34 (L) 36 (L) 39 40 AST 14 - 40 U/L 31 65 (H) 47 (H) 61 (H) 59 (H) Glucose 74 - 99 mg/dL 232 (H) 188 (H) 208 (H) 186 (H) BUN 9 - 24 mg/dL 14 16 13 14 Creatinine 0.73 - 1.22 mg/dL 0.74 0.80 0.74 0.75 Sodium 136 - 144 mmol/L 139 142 138 137 Potassium 3.7 - 5.1 mmol/L 4.3 4.1 3.9 4.1 Chloride 97 - 105 mmol/L 98 99 100 97 CO2 22 - 30 mmol/L 26 28 26 25 Anion Gap 9 - 18 mmol/L 15 15 12 15 ALT 10 - 54 U/L 60 (H) 107 (H) 70 (H) 86 (H) 88 (H) Latest Ref Rng 03/06/2017 05/15/2020 Hemoglobin A1C 4.3 - 5.6 % 9.7 (H) Estimated Average Glucose mg/dL 232 Hemoglobin A1C (POCT) 4.2 - 5.6 % 8.9 ! Latest Ref Rng 09/27/2016 02/23/2018 09/07/2018 05/15/2020 Triglyceride <150 mg/dL 203 (H) 185 (H) 202 (H) 226 (H) Cholesterol, Total <200 mg/dL 136 120 134 121 HDL Cholesterol >39 mg/dL 29 (L) 27 (L) 31 (L) 30 (L) VLDL Cholesterol <30 mg/dL 41 (H) 37 (H) 40 (more content not included)... [facility] 02-26-2025 History of Present illness Narrative 9:28 AM end 9:46 AM VIRTUAL VISIT HEPATOLOGY CONSULT I have communicated my name and active licensure. The patient's identity and physical location were verified at the time of this visit. Either the patient or their legal business services sales representative has been informed of the risks and benefits of -- and alternatives to -- treatment through a remote evaluation and consents to proceed with the evaluation remotely. I had a virtual visit with Mr. Carmen rojo who was referred by Karri Hernandez CNP for evaluation and treatment of hepatic steatosis. A copy of this visit will be sent to the referring physician via the shared medical record. I have personally interviewed and examined this patient and have confirmed or modified the review of systems both general and GI specific in the nursing notes. UPDATED HISTORY: Patient reports that he has had type 2 diabetes for 15 years or more. Has had borderline enzymes for a while. Has been taken off Lipitor in the past. Zetia was added. Also taking fenofibrate. Has AFUA - using CPAP. Thinks he might need a new study. Rare alcohol. No IVDA. Has a family history of elevated triglycerides. Father at 55 - heart disease, Pat uncle in his late 60s and PGF in 60s from heart disease. All had elevated Trig. Started taking Active Liver supplement. Now using [employer] - works better for him for his glucose than Shut Down. PAST MEDICAL HISTORY Diagnosis Date Diabetes mellitus 2006 Type 2 Hyperlipidemia LDL goal < 100 2006 Obstructive sleep apnea 11/24/2016 PAST SURGICAL HISTORY Procedure Laterality Date DRG LYMPH NODE ABSC/LYMPHADENITIS EXTNSV 2006 VASECTOMY UNI/BI SPX W/POSTOP SEMEN EXAMS 07/05/13 FAMILY HISTORY Problem Relation Age of Onset other (hyperlipidemia [Other]) Mother Coronary Artery Disease Father None Brother Diabetes Maternal Grandmother Diabetes Paternal Grandmother Coronary Artery Disease Paternal Grandfather Colon Cancer No Family History Liver Disease No Family History SOCIAL HISTORY[1] Current Outpatient Medications Medication Sig Dispense Refill ZETIA 10 mg tablet Fenofibrate (LOFIBRA) 54 mg tablet FARXIGA 10 mg tablet metFORMIN ER (GLUCOPHAGE XR) 500 mg 24 hr tablet Take 2 tablets by mouth every 12 hours. glimepiride (AMARYL) 4 mg tablet Take 2 tablets by mouth daily with breakfast. 180 tablet 1 ramipril (ALTACE) 5 mg capsule Take 1 capsule by mouth once daily. 90 capsule 1 omega-3 acid ethyl esters (LOVAZA) 1 gram capsule Take 2 capsules by mouth twice daily. 360 capsule 3 dulaglutide (TRULICITY) 3 mg/0.5 mL pen injector Inject 3 mg subcutaneously one time a week. 12 Each 3 blood sugar diagnostic (FREESTYLE LITE STRIPS) test strip TEST BLOOD SUGAR(S) TWICE TIMES DAILY. DX: E11.65 200 Strip 3 Blood-Glucose Meter (FREESTYLE LITE METER) monitoring kit DX: 250.00 1 Each 0 No current facility-administered medications for this visit. ALLERGIES No Known Allergies REVIEW OF SYSTEMS: PAIN ASSESSMENT: Negative for pain, history of chronic pain, or current treatment for a chronic pain condition. GENERAL: Weight loss RESPIRATORY: Negative for cough, hemoptysis, wheezing, COPD, dyspnea or shortness of breath CARDIOVASCULAR: Negative for chest pain, leg swelling, hypertension, CHF or palpitations PHYSICAL FINDINGS OF NOTE: General - Normal, healthy, cooperative, in no acute distress Able to interact verbally by video conference Psych - ORIENTATION: normal to time place, person and situation Mood/Affect: AFFECT AND MOOD: Normal REVIEWED ITEMS MELD 3 would be 5 assuming INR of 1.0 Latest Ref Rng 02/23/2018 09/07/2018 04/06/2019 05/15/2020 12/05/2024 Protein, Total 6.3 - 8.0 g/dL 6.6 8.0 7.3 7.6 7.5 Albumin 3.9 - 4.9 g/dL 5.0 (H) 5.3 (H) 5.0 (H) 5.2 (H) 4.9 Calcium 8.5 - 10.2 mg/dL 9.7 9.8 9.5 9.5 Bilirubin, Total 0.2 - 1.3 mg/dL 1.4 (H) 1.4 (H) 1.1 1.7 (H) 0.8 Alkaline Phosphatase 38 - 113 U/L 33 (L) 34 (L) 36 (L) 39 40 AST 14 - 40 U/L 31 65 (H) 47 (H) 61 (H) 59 (H) Glucose 74 - 99 mg/dL 232 (H) 188 (H) 208 (H) 186 (H) BUN 9 - 24 mg/dL 14 16 13 14 Creatinine 0.73 - 1.22 mg/dL 0.74 0.80 0.74 0.75 Sodium 136 - 144 mmol/L 139 142 138 137 Potassium 3.7 - 5.1 mmol/L 4.3 4.1 3.9 4.1 Chloride 97 - 105 mmol/L 98 99 100 97 CO2 22 - 30 mmol/L 26 28 26 25 Anion Gap 9 - 18 mmol/L 15 15 12 15 ALT 10 - 54 U/L 60 (H) 107 (H) 70 (H) 86 (H) 88 (H) Latest Ref Rng 03/06/2017 05/15/2020 Hemoglobin A1C 4.3 - 5.6 % 9.7 (H) Estimated Average Glucose mg/dL 232 Hemoglobin A1C (POCT) 4.2 - 5.6 % 8.9 ! Latest Ref Rng 09/27/2016 02/23/2018 09/07/201805/1505/15/2020 Triglyceride <150 mg/dL 203 (H) 185 (H) 202 (H) 226 (H) Cholesterol, Total <200 mg/dL 136 120 134 121 HDL Cholesterol >39 mg/dL 29 (L) 27 (L) 31 (L) 30 (L) VLDL Cholesterol <30 mg/dL 41 (H) 37 (H) 40 (H) 45 (H) LDL Cholesterol, Calculated <100 mg/dL 66 56 63 46 Fasting Time hrs 12 12 12 12 TC:HDL Ratio <5.10 4.69 4.44 4.32 4.03 LDL:HDL Ratio <2.54 2.28 2.07 2.03 1.53 Non HDL Cholesterol <130 mg/dL 107 93 103 91 Negative serology for hepatitis, normal ceruloplasmin, KAREEN SMA and AMA. Elastography kPa 8.6 IMAGING OS film Hepatomegaly - liver 20cm and hepatic steatosis IMPRESSION/PLAN 44 yo male with fatty liver. Discussed the natural course of fatty liver. Does not need to take the Active Liver - just take milk thistle - script sent to his listed pharmacy.This is used for fatty liver and also for elevated triglycerides. Check lipids in 3 motn intervals. order palced. Cholesterol is 214 - add Pravachol as a lipid lowering agent. Pravachol depends on glucuronidation for metabolism and has minimal interaction with the CYP 450 system and is excreted in an unchanged form. It may be a better choice for a statin medication for this type of situation. Strong family history of heart disease with elevated triglycerides. Recommend referral to Preventive Cardiology - order placed. Check lipids every 3 months - order placed. Redo AFUA study per patient suggestion. RTC in 6 months or prn I spent a total of 30 minutes on the date of the service which included preparing to see the patient, [id number] patient care, completing clinical documentation, obtaining and/or reviewing separately obtained history, counseling and educating the patient/family/caregiver, ordering medications, tests, or procedures, and communicating with other HCPs (not separately reported). Jarred Giraldo MD, PhD [1] Social History Tobacco Use Smoking status: Never Smokeless tobacco: Never Vaping Use Vaping status: Never Used Substance Use Topics Alcohol use: Yes Comment: once a month Drug use: No documented in this encounter [facility] 12-20-2024 Note HNO ID: [id number] Author: VEE LOPEZ APRN.SIMBA Service: ? Author Type: Nurse Practitioner Type: Progress Notes Filed: 12/20/2024 11:10 Note Text: Fibroscan Report Date performed: December 20, 2024 Indication : MASLD Patient fasted 3 hours:Yes Performed by Malena Cortes LPN Impression The liver stiffness is 8.6 kPa which corresponds to 91% chance of stage 0-2 fibrosis. The CAP analysis showed grade S3 of liver steatosis. Stage of liver fibrosis based on above kPa: A 91% chance of stage 0-2 fibrosis A 9% chance of stage 3-4 fibrosis (advanced fibrosis) A 1.3% chance of stage 4 fibrosis (cirrhosis). A kPa >20 indicates a high likelihood of stage 4 fibrosis/cirrhosis, consider further testing to confirm and refer to hepatology. Recommendations If kPa <8.0, reassess periodically Fib-4 score every 1-2 years if T2DM/Pre-T2DM OR with 2 or more metabolic risk factors Fib-4 score 2-3 years if no T2DM and <2 metabolic risk factors If kPa >8.0, refer to hepatology for further evaluation Result-Findings Technical difficulties: None. Result: The reading was adequate. Please refer to get images report for individual readings Number of readings: 10 IQR %: 5 E (kpa): 8.6 CAP: 342 Interpreted by: Vee Lopez APRN, SIMBA [facility] Fibroscan Fibrosis Risk <7 kPA = F0-F2 97%, F3+F4 3%, F4 <1% <10 kPA = F0-F2 91%, F3+F4 9%, F4 1.3% 10-15 kPA = F0-F2 56%, F3+F4 43%, F4 14% >15 kPA = F0-F2 26%, F3+F4 74%, F4 46% Grade CAP value up to 237 dB/M corresponds to S0 (< 10 % Fat) CAP value between (238 - 258 dB/M) corresponds to S1 (>/= 11 % Fat) CAP value between (259 - 289 dB/M) corresponds to S2 (>/= 33 % Fat) CAP value > 290dB/M corresponds to S3 (>/= 67 % Fat) stage 0 ( S0:< 10 % steatosis) stage 1 (>/= S1: 11%-33% steatosis) stage 2 (>/= S2: 34%-66% steatosis) stage 3 (>/= S3: > 66% steatosis) References Sunday Y, Aj Q, Sunday T, Rochelle J, Sunday H, Jose T. Controlled attenuation parameter for assessment of hepatic steatosis grades: a diagnostic meta-analysis. Int J Clin Exp Med. 2015 Apr 15;8(10):99557-38. PMID: 40904466; PMCID: [id number]. Jacqueline Mike, Checo PATIÑO, Vipin M, Bess F, Gamaliel J, Genia O, Chavo F, Sherry M, Adolfo G, Sal A, Javier E, Catrachito L, Zachery G, Kelsie A, Abdiel U, Oneida S, Emily P, Magalys V, Alegre V, Vipul M, Donita HAMMOND. Refining the Baveno elastography criteria for the definition of compensated advanced chronic liver disease. J Hepatol. 2020;74(5):4758-2073. doi: 10.1016/j.jhep.2020.11.050. Epub 2019Jun 17. PMID: 63975506. Sue Mike, Remi B, Marlena iMke, Tracey Mike, Gretta S, Madison Cole, Vikki D, Marcio Guzman. AASLD practice guidance on the clinical assessment and management of nonalcoholic fatty liver disease. Hepatology. 2022;77(5):6024-3340. doi:10.1097/HEP.[id number] [facility] 12-20-2024 History of Present illness Narrative Fibroscan Report Date performed: December 20, 2024 Indication : MASLD Patient fasted 3 hours:Yes Performed by Malena Cortes LPN Impression The liver stiffness is 8.6 kPa which corresponds to 91% chance of stage 0-2 fibrosis. The CAP analysis showed grade S3 of liver steatosis. Stage of liver fibrosis based on above kPa: A 91% chance of stage 0-2 fibrosis A 9% chance of stage 3-4 fibrosis (advanced fibrosis) A 1.3% chance of stage 4 fibrosis (cirrhosis). A kPa >20 indicates a high likelihood of stage 4 fibrosis/cirrhosis, consider further testing to confirm and refer to hepatology. Recommendations If kPa <8.0, reassess periodically Fib-4 score every 1-2 years if T2DM/Pre-T2DM OR with 2 or more metabolic risk factors Fib-4 score 2-3 years if no T2DM and <2 metabolic risk factors If kPa >8.0, refer to hepatology for further evaluation Result-Findings Technical difficulties: None. Result: The reading was adequate. Please refer to get images report for individual readings Number of readings: 10 IQR %: 5 E (kpa): 8.6 CAP: 342 Interpreted by: Vee Lopez APRN, CNP MASLD Fibroscan Fibrosis Risk <7 kPA = F0-F2 97%, F3+F4 3%, F4 <1% <10 kPA = F0-F2 91%, F3+F4 9%, F4 1.3% 10-15 kPA = F0-F2 56%, F3+F4 43%, F4 14% >15 kPA = F0-F2 26%, F3+F4 74%, F4 46% Grade CAP value up to 237 dB/M corresponds to S0 (< 10 % Fat) CAP value between (238 - 258 dB/M) corresponds to S1 (>/= 11 % Fat) CAP value between (259 - 289 dB/M) corresponds to S2 (>/= 33 % Fat) CAP value > 290dB/M corresponds to S3 (>/= 67 % Fat) stage 0 ( S0:< 10 % steatosis) stage 1 (>/= S1: 11%-33% steatosis) stage 2 (>/= S2: 34%-66% steatosis) stage 3 (>/= S3: > 66% steatosis) References Brand Y, Fan Q, Brand T, Rochelle J, Brand H, Garcia T. Controlled attenuation parameter for assessment of hepatic steatosis grades: a diagnostic meta-analysis. Int J Clin Exp Med. 2015 Apr 15;8(10):64307-80. PMID: 58710516; PMCID: [id number]. Jacqueline Mike, Checo PATIÑO, Vipin M, Bess F, Gamaliel J, Genia O, Chavo F, Sherry Mike, Adolfo G, Sal A, Danniin E, Catrachito L, Papjanice G, Kelsie A, Abdiel U, Oneida S, Emily P, Magalys V, Alegre V, Vipul M, Donita HAMMOND. Refining the Baveno elastography criteria for the definition of compensated advanced chronic liver disease. J Hepatol. 2020;74(5):9182-3196. doi: 10.1016/j.jhep.2020.11.050. Epub 2019Jun 17. PMID: 17413459. Sue Mike, Remi B, Marlena Mike, Tracey Mike, Gretta S, Madison Cole, Vikki Cole, Marcio Guzman. AASLD practice guidance on the clinical assessment and management of nonalcoholic fatty liver disease. Hepatology. 2022;77(5):9605-6765. doi:10.1097/HEP.[id number] documented in this encounter [facility] 11-28-2024 Note HNO ID: [id number] Author: KARRI HERNANDEZ APRN.SIMBA Service: ? Author Type: Nurse Practitioner Type: Progress Notes Filed: 11/28/2024 08:27 Note Text: CHIEF COMPLAINT: Patient presents with: Fatty Liver This consult was requested by No ref. provider found for an opinion regarding fatty liver. My final recommendations will be communicated to the requesting health care provider by way of the shared medical record for internal providers or letter via the [employer] for external providers. HPI: Jen Morales is a 44 year old male with hx of DMII, HLD, AFUA who presents for Fatty Liver. He has routine blood work in July and it showed mild elevation of the LFT"s (AST 46, ALT 101, TB 1.1, ALP 43). Denies any family hx of liver issues. He has had some mild RUQ discomfort for about 2-3 years, and this improved some since starting zetia. (-) jaundice, easy bruising or bleeding, LE swelling, weight changes, melena or hematochezia. Alcohol: 1 drink per month, if that He was started on terbinafine by dermatology last summer (no longer on this). Record Review: [facility] / Outside records reviewed. PAST MEDICAL HISTORY Diagnosis Date Diabetes mellitus 2006 Type 2 Hyperlipidemia LDL goal < 100 2006 Obstructive sleep apnea 11/24/2016 PAST SURGICAL HISTORY Procedure Laterality Date DRG LYMPH NODE ABSC/LYMPHADENITIS EXTNSV 2006 VASECTOMY UNI/BI SPX W/POSTOP SEMEN EXAMS 07/05/13 Allergies: ALLERGIES No Known Allergies Medications: ZETIA 10 mg tablet Fenofibrate (LOFIBRA) 54 mg tablet FARXIGA 10 mg tablet metFORMIN ER (GLUCOPHAGE XR) 500 mg 24 hr tablet Take 2 tablets by mouth every 12 hours. glimepiride (AMARYL) 4 mg tablet Take 2 tablets by mouth daily with breakfast. ramipril (ALTACE) 5 mg capsule Take 1 capsule by mouth once daily. omega-3 acid ethyl esters (LOVAZA) 1 gram capsule Take 2 capsules by mouth twice daily. dulaglutide (TRULICITY) 3 mg/0.5 mL pen injector Inject 3 mg subcutaneously one time a week. blood sugar diagnostic (FREESTYLE LITE STRIPS) test strip TEST BLOOD SUGAR(S) TWICE TIMES DAILY. DX: E11.65 Blood-Glucose Meter (FREESTYLE LITE METER) monitoring kit DX: 250.00 FAMILY HISTORY Problem Relation Age of Onset other (hyperlipidemia [Other]) Mother Coronary Artery Disease Father None Brother Diabetes Maternal Grandmother Diabetes Paternal Grandmother Coronary Artery Disease Paternal Grandfather Colon Cancer No Family History Liver Disease No Family History Employer And Job Title: None on file Years Of Education Completed: Not specified Marital Status: Social History Tobacco Use Smoking status: Never Smokeless tobacco: Never Vaping Use Vaping status: Never Used Substance Use Topics Alcohol use: Yes Comment: once a month Drug use: No Review of Systems: Review of Systems All other systems reviewed and are negative. Are you taking any blood thinners? No Physical Examination: BP 124/72 Pulse 91 Ht 5' 9.5" (1.77m) Wt 197 lb 8 oz (89.6kg) BMI 28.76 kg/(m2). Physical Exam Constitutional: Appearance: Normal appearance. HENT: Head: Normocephalic and atraumatic. Eyes: General: No scleral icterus. Cardiovascular: Rate and Rhythm: Normal rate and regular rhythm. Pulmonary: Breath sounds: Normal breath sounds. Abdominal: General: Abdomen is protuberant. Bowel sounds are normal. There is no distension. Palpations: Abdomen is soft. Tenderness: There is no abdominal tenderness. There is no guarding or rebound. Skin: General: Skin is warm and dry. Neurological: Mental Status: He is alert and oriented to person, place, and time. Psychiatric: Mood and Affect: Mood normal. Behavior: Behavior normal. ASSESSMENT: (K76.0) Hepatic steatosis (primary encounter diagnosis) (R94.5) Abnormal liver function 1. Hepatic steatosis (Primary) - discussed MASLD, risk factors, treatment options (diet, exercise, weight loss, medication if F2/3), and risk of progression to cirrhosis. [facility] is option if F2/3 - check Fibroscan - DDI VIBRATION CONTROLLED TRANSIENT ELASTOGRAPHY (VCTE) - HEPATIC FUNCTION PNL; Future 2. Abnormal liver function - likely d/t fatty liver, however will rule out other liver disease. Recheck HFP - [id number]; Future - SMOOTH MUSCLE AB SCR; Future - KAREEN BLOOD; Future - CERULOPLASMIN; Future - FERRITIN; Future - HEP REMOTE PANEL BL; Future - IRON AND TIBC; Future - MITOCHONDRIAL M2 IGG SERUM; Future - HEPATIC FUNCTION PNL; Future Follow up in office TBD based on results Karri Hernandez APRN.PROJECT SUPERINTENDENT November 28, 2024 8:[address] 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 Luana Sgaastume [facility] 09-11-2024 Miscellaneous Notes FYI: Returned patient call, left voicemail, advised patient that he needs to contact his previous horticulturalist to have records forwarded, as he will have to sign a release of records to our service, fax number to here provided. Luana Sagastume [facility] Patient called in and would like to provide Karri with a fax number to [facility] if she would need to request any records prior to appointment.. Fax number is [phone]. Please advise. Thank you documented in this encounter [facility] 09-11-2024 Telephone encounter Note Patient called in and would like to provide Karri with a fax number to [facility] if she would need to request any records prior to appointment.. Fax number is [phone]. Please advise. Thank you [facility] 07-06-2011 History of Past i llness Narrative Problem Noted Date Resolved Date Diabetes mellitus 07/06/2011 12/05/2014 documented as of this encounter (statuses as of 06/07/2022) [facility] History of Past illness Narrative* Problem Noted Date Resolved Date Diabetes mellitus 07/06/2011 12/05/2014 documented as of this encounter (statuses as of 06/08/2022) [facility] History of Past illness Narrative* Problem Noted Date Resolved Date Diabetes mellitus 07/06/2011 12/05/2014 documented as of this encounter (statuses as of 07/14/2022) [facility] Diagnosis Fatty liver disease, nonalcoholic Other chronic nonalcoholic liver disease [facility] Diagnosis Hyperlipidemia with target LDL less than 100 Other and unspecified hyperlipidemia [facility] Diagnosis Onset Date Resolution Status URI, acute acute Hyperlipidemia chronic Hypertension chronic Type 2 diabetes mellitus [facility] Work Phone: Evaluation note* Diagnosis Hepatic steatosis- Primary Other chronic nonalcoholic liver disease [facility] Diagnosis Hepatic steatosis- Primary Other chronic nonalcoholic liver disease [facility]* Diagnosis Hypertriglyceridemia- Primary Pure hyperglyceridemia Hepatic steatosis Other chronic nonalcoholic liver disease Elevated LDL cholesterol level Pure hypercholesterolemia Elevated cholesterol Pure hypercholesterolemia Family history of heart disease Family history of other cardiovascular diseases Hyperlipidemia with target LDL less than 100 Other and unspecified hyperlipidemia [facility] noteNo assessment information availableWh[facility]ier [facility] Work Phone: Reason for referral (narrative)No reason for referral information availableBlKern Medical Center Work Phone: Refg[facility] for visit Narrative* Outpatient Procedure (Routine) - Closed Specialty Diagnoses / Procedures Referred By Contac t Referred To Contact [facility] Diagnoses Hepatic steatosis Procedures DDI VIBRATION CONTROLLED TRANSIENT ELASTOGRAPHY (VCTE) LIVER ELASTOGRAPHY W/O IMAG W/I&R Karri Hernandez, PATROL CAPTAIN.PROJECT SUPERINTENDENT [address] [place] [address] Phone: tel: fax: [facility] [address] [place] [address] Referral ID Status Reason Start Date Expiration Date V isits Requested Visits Authorized [id number] Closed Auto-Generate d Referral 12/03/2024 07/09/2025 1 1 [facility] Chief Complaint and Reason for Visit Chief Complaint SORE THROAT 5 M FU Reason for Visit URI, acute Hyperlipidemia Hypertension Type 2 diabetes mellitus Chief Complaint Admit Date 6 M FU March 07, 2025 10 :34am Family History No Family History Records Found Relationship Condition Age at Onset Recorded Date/T june Not Specified Diabetes mellitus Unknown High blood cholesterol Unknown Cerebrovascular accident (CVA) Unknown father Myocardial infarction 55 uncle Myocardial infarction 60 grandfather Myocardial infarction 60 Summary Purpose Advance Directives No Advanced Directives Records FoundNo Advanced Directives Records Found Additional Source Comments Source Comments (unrecognize d section and content) In the event this informatio n is protected by the Federal Confidentiality of Alcohol and Drug Abuse Patient Records regulations: The Federal rules restrict any use of the information to criminally investigate or prosecute any alcohol or drug abuse patient.[facility] the event this information is protected by the Federal Confidentiality of Alcohol and Drug Abuse Patient Records regulations: The Federal rules restrict any use of the information to criminally investigate or prosecute any alcohol or drug abuse patient.[facility] the event this information is protected by the Federal Confidentiality of Alcohol and Drug Abuse Patient Records regulations: The Federal rules restrict any use of the information to criminally investigate or prosecute any alcohol or drug abuse patient.[facility] the event this information is protected by the Federal Confidentiality of Alcohol and Drug Abuse Patient Records regulations: The Federal rules restrict any use of the information to criminally investigate or prosecute any alcohol or drug abuse patient.[facility] the event this information is protected by the Federal Confidentiality of Alcohol and Drug Abuse Patient Records regulations: The Federal rules restrict any use of the information to criminally investigate or prosecute any alcohol or drug abuse patient.[facility] the event this information is protected by the Federal Confidentiality of Alcohol and Drug Abuse Patient Records regulations: The Federal rules restrict any use of the information to criminally investigate or prosecute any alcohol or drug abuse patient.[facility] the event this information is protected by the Federal Confidentiality of Alcohol and Drug Abuse Patient Records regulations: The Federal rules restrict any use of the information to criminally investigate or prosecute any alcohol or drug abuse patient.[facility] the event this information is protected by the Federal Confidentiality of Alcohol and Drug Abuse Patient Records regulations: The Federal rules restrict any use of the information to criminally investigate or prosecute any alcohol or drug abuse patient.[facility] Reason for Visit (unrecogniz ed section and content) Reason Comments Refill Request Reason Comments Appointment Reason Comments Consult Specialty Diagnoses / Procedures Referred By Contac t Referred To Contact Gastroenterology Diagnoses Hepatic steatosis Procedures OFFICE/OUTPATIENT NEW HIGH MDM 60 MINUTES Karir Hernandez, PATROL CAPTAIN.PROJECT SUPERINTENDENT [address] [place] [address] Phone: tel: fax: Alissa Groves MD [address] [place] [address] Phone: tel: fax: Referral ID Status Reason Start Date Expiration Date V isits Requested Visits Authorized [id number] Closed PCP Requested Referral 12/20/2024 12/20/2025 1 1 Care Teams (unrecognized sec tion and content) Sawmill Or Timber Yard Worker Relationship Specialty Start Date End Date Kimani Mckeon MD [address] [facility] [address] [place] [address] PCP - General Internal Medicine 07/28/21 Team Status: Active Member Role Status Dates Family Provider Active Dr. Kimani Mckeon MD Primary Care Provider Active Team Status: Inactive Member Role Status Dates Dr. Kimani Mckeon MD Primary Care Flores segura, Attending Provider, Referring Provider Active Team Status: Inactive Member Role Status Dates Dr. Kimani Mckeon MD Primary Care Provider, Refer ring Provider Active Lemuel GARCIA, PA Attending Provider Active [employer]mill [employer] Timber Yard Worker Relationship Specialty Start Date End Date Kimani Mckeon MD [address] [facility] [address] [place] [address] PCP - General Internal Medicine 07/28/21 Sawmill Or Timber Yard Worker Relationship Specialty Start Date End Date Kimani Mckeon MD [address] [facility] [address] [place] [address] PCP - General Internal Medicine 07/28/21 Saw[employer] Timber Yard Worker Relationship Specialty Start Date End Date Kimani Mckeon MD [address] [facility] [address] [place] [address] PCP - General Internal Medicine 07/28/21 Sawmill Or Timber Yard Worker Relationship Specialty Start Date End Date Kimani Mckeon MD [address] [place] [phone] PCP - General Internal Medicine 07/28/21 Sawmill Or Timber Yard Worker Relationship Specialty Start Date End Date Kimani Mckeon MD [address] [facility] [address] [place] [phone] PCP - General Internal Medicine 07/28/21 Team Status: Active Member Role/Relationship Status Dates Family Provider Active Dr. Kimani Mckeon MD Primary Care Provider Active Team Status: Inactive Member Role/Relationship Status Dates Dr. Kimani Mckeon MD Primary Care Provider Active Start: March 07, 2025 End: March 07, 2025 Dr. Kimani Mckeon MD Attending Provider Active Start: March 07, 2025 End: March 07, 2025 Dr. Kimani Mckeon MD Referring Provider Active Start: March 07, 2025 End: March 07, 2025 Goals (unrecognized section and content) Goals may be documented in a n alternate sectionGoals may be documented in an alternate section (unrecognized sect ion and content) No Status Records FoundNo Status Records Found INFORMATION SOURCE (unrecogn ized section and content) DATE CREATED AUTHOR 02/27/[address] [facility] DATE CREATED AUTHOR 'S ORGANIZ ATION 04/21/2025 [facility] FOR RECORDS PERTAINING TO PATIENTS WHO ARE OR HAVE BEEN ENROLLED IN A CHEMICAL DEPENDENCY/SUBSTANCEABUSE PROGRAM, SOME INFORMATION MAY BE OMITTED. This clinical summary was aggregated from multiple sources. Caution should be exercised in using it in the provision of clinical care. This summary normalizes information from multiple sources, and as a consequence, information in this document may materially change the coding, format and clinical context of patient data. In addition, data may be omitted in some cases. CLINICAL DECISIONS SHOULD BE BASED ON THE PRIMARY CLINICAL RECORDS. [facility] [employer] [facility]. provides no warranty or guarantee of the accuracy or completeness of information in this document.
--- NOTE | 2025-04-25 07:50 | CT_ITS ---
PROCEDURE: LIMITED CHEST CT CARDIAC ONLY 04/25/2025 REASON FOR EXAM: CALCIUM SCORING Family history of coronary artery disease. TECHNIQUE: Procedure Code: [id number] Modality: CT Procedure: LIMITED CHEST CT CARDIAC ONLY CONTRAST: None One or more dose reduction techniques were used (e.g., Automated exposure control, adjustment of the mA and/or kV according to patient size, use of iterative reconstruction technique). RADIATION DOSE SUMMARY: CTDlvol: 12.19 mGy DLP: 219.42 mGycm COMPARISON: None FINDINGS: Coronary artery calcification. The heart is not enlarged. The pericardium is unremarkable. Minimal left pleural thickening. 6 mm partially calcified nodule in the inferior lateral aspect of the right lower lobe. CT/Limited Chest CT Cardiac Only IMPRESSION: Coronary artery calcification. Reading Location: [place] [id number]
--- NOTE | 2025-04-25 17:49 | CA.SCORE ---
Calcium Scoring Date of Study:: 04/25/25 Indications Indications: Screening Coronary Calcium Scoring: High-resolution Computed Tomographic imaging of the chest was performed on [04/25/2025], with particular attention paid to the coronary arteries. Images from the examination were analyzed for the presence and extent of coronary artery calcification , using coronary calcium quantification software. The patient tolerated the procedure well and there were no complications. The results of the coronary calcification analysis are provided below. Findings Coronary Artery Left Main (LM): 91 Left Anterior Descending (LAD): 0 Left Circumflex (LCX): 0 Right Coronary Artery (RCA): 2.98 Total Agatston Score: 93.98 Percentile Ranking: Greater than 90th percentile Calcium Scoring Interpretation: Different methods to categorize the overall amount of coronary plaque. Overall amount CAC SIS Visual of coronary plaque P1 Mild -100 <2 1-2 vessels with mild amount of plaque P2 Moderate 101-300 3-4 1-2 vessels with moderate amount, 3 vessels with mild amount of plaque P3 Severe 301-999 5-7 3 vessels with moderate amount, 1 vessel with severe amount of plaque P4 Extensive >1000 >8 2-3 vessels with severe amount of plaque Conclusion: Premature focal single-vessel plaque noted.
== END | disposition home or self-care (01) ==
LOC: CT 07:42
PROVIDERS: PCP Internal Medicine; Referring Provider Internal Medicine; Visit Provider Internal Medicine
DX: E11.65 Type 2 diabetes mellitus with hyperglycemia (principal); I10 Essential (primary) hypertension; Z82.49 Family history of ischemic heart disease and other diseases of the circulatory system
CPT/HCPCS: 75571; 76380